=== PATIENT | female | born 1965 | race Caucasian/White ===

== ENCOUNTER 2024-04-15 10:05 | Outpatient (CLI) | payer BC, SELFPAY ==
--- OUTSIDE RECORDS SUMMARY | 2024-04-15 10:09 | XMS_ITS | Clinical Summary ---
Author Organization [employer] [facility] Address [place], [place] [address] Care Team Providers Care Welding Machine Operator Electroslag Name Role Phone Kajal Rice MD Primary Care Provider Unavai lable Allergies Active Allergy Reactions Criticality Noted Date Comments Naproxen Hives 04/09/2018 Medications Medication Sig Dispensed Refills Start Date End Date Status MULTIVITAMIN CAP daily 0 Active ADVIL ORAL None Entered 0 Active levothyroxine (SYNTHROID) 175 mcg tablet Take 175 mcg by mouth once daily. 2 01/13/2018 Active Vit C-Vit N-Vmbctq-Mjs-OM-3 (OCUVITE 150 MG-30 UNIT-5 MG-150 MG CAPSULE) 660-83-2-150 bp-wpdr-up-mg capsule Take by mouth. 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 07/19/05 Social History Tobacco Use Types Packs/Day Years Used Date Smoking Tobacco: Never Smokeless Tobacco: Never Tobacco Cessation:Counseling Given: Yes Alcohol Use Standard Drinks/Week Comments Yes 2 (1 standard drink = 0.6 oz pur e alcohol) Sex and Gender Information Value Date Recorded Sex Assigned at Not on file Gender Identity Not on file Sexual Orientation Not on file Obstetrics History Last Filed Vital Signs Vital Sign Reading Time Taken Comments Blood Pressure 125/79 04/09/2018 9:58 AM CDT Pulse 62 04/09/2018 9:58 AM CDT Temperature 36.8 ??C (98.2 ??F) 04/09/2018 9 :58 AM CDT Respiratory Rate 16 04/09/2018 9:58 AM CDT Oxygen Saturation 99% 04/09/2018 9:5 8 AM CDT Inhaled Oxygen Concentration - - Weight 81.2 kg (179 lb) 04/09/2018 9:58 AM CDT Pt weighed with shoes on. 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 Body Mass Index - - Plan of Treatment Health Maintenance Due Date Last Done Comments Tdap 1976 Depression screening for age 12+ 1977 HIV for age 15-65 1980 BMI (ht and wt on same day) for age 18+ 1983 Hepatitis C screening for ag e 18-79 1983 Tetanus booster 1985 Colonoscopy through age 75 2010 Lipids for age 45-75 2010 Mammogram for age 45-75 2010 Zoster (shingles) series for age 50+ (1 of 2) 2015 Pap test for age 21-65 11/28/2020 8, 11/28/2017 COVID-19 vaccine series (2022-24 season) 2024 Influenza for age 50-64 03/31/2024 Pneumococcal series for age 6-64 Aged Out No longer eligible b ased on patient's age to complete this topic Procedures Procedure Name Priority Date/Time Associated Diagnosis Comments INSTRUMENTATION DESIGNER THIN PREP PAP SCREEN IMAGED Routine 11/28/2017 8:30 AM CDT from Last 3 Months or Most Recently Relevant to Health Maintenance Results * INSTRUMENTATION DESIGNER THIN PREP PAP SCREEN IMAGED (11/28/2017 8:30 AM CDT) Case Report Gynecologic Cytology Report ? Case: [id number] ? Authorizing Provider: ??Kajal Rice MD ? Collected: ? 11/28/2017 0830 ? First Screen: ?Minoo Valenzuela ?Received: ?11/29/2017 1819 ? Specimen: ?INSTRUMENTATION DESIGNER ThinPrep Vial Screening, Cervical/Vaginal ? 12/05/2017 8:32 PM CDT [facility] INTERPRETATION/ RESULT NEGATIVE FOR INTRAEPITHELIAL LESION OR MALIGNANCY (NIL) (none) 12/05/2017 8:32 PM CDT [facility] IMEN ADEQUACY Satisfactory for evaluation No endocervical component seen 12/05/2017 8:32 PM CDT [facility] HPV REQUEST HPV and PAP 12/05/2017 8:32 PM CDT [facility] Date of LMP 10/29/2017 12/05/2017 8:32 PM CDT [facility] Last Pap Date 10/17/2012 12/05/2017 8:32 PM CDT [facility] Last Pap Result NIL 8 8:32 PM CDT [facility] Automated Review Successful 12/05/2017 8:32 PM T [facility] Comment:Specimen processed s uccessfully by automated hunting and fishing guide device, ThinPrep Imaging System, [employer] ANCILLARY TESTING INSTRUMENTATION DESIGNER HPV Ordered, Please see separate report 12/05/2017 8:32 PM T [facility] Note The pap test is a screening technique, not a diagnostic procedure. ??It is used primarily to screen for squamous cancers and precursor lesions. ??Published studies have shown that it is subject to both false negative and false positive results. ??The pap test should not be used as the sole means to diagnose or exclude pre-malignant and malignant lesions. Interpreted at [facility] ([facility], [facility], [facility], [facility], [facility], [facility], [facility]) 12/05/2017 8:32 PM CDT [facility] Other (Cervical/Vagina l) 11/28/2017 8:30 AM CDT 11/29/2017 6:19 PM CDT Kajal Rice MD PATHOLOGY/CYTOLOGY [facility] [address] [place] [address], from Last 3 Months or Most Recently Relevant to Health Maintenance Advance Directives * Full Code (Latest Code Status on File) Date Activated Date Inactivated Comments 07/19/2005 9:37 AM 07/20/2005 1:08 PM Care Teams Welding Machine Operator Electroslag Relationship Specialty Start Date End Date Kajal Rice MD PCP - General Family Practice 04/09/18
--- NOTE | 2024-04-15 10:15 | CRLHL7_ITS ---
For Patients: As a result of the Century Cures Act, medical imaging exams and procedure reports are released immediately into your electronic medical record. You may view this report before your referring provider. If you have questions, please contact your health care provider. CLINICAL INDICATION: Elbow pain. COMPARISON IMAGING STUDIES: Left elbow radiograph 04/04/2024 TECHNICAL: Noncontrast MRI scan of the left elbow. FINDINGS: MYOTENDINOUS STRUCTURES: Triceps: Normal. Biceps: Insertional tendinosis and/or chronic partial tear of the distal biceps tendon with minimal bursal fluid deep to the tendon at its attachment. Brachialis: No strain or tear. Supinator: No strain or tear. Common Extensor Tendon and Forearm Extensors: Tendinosis and partial tear of the common extensor tendon at its lateral epicondylar attachment. Common Flexor Tendon and Forearm Flexors: Mild insertional tendinosis/tendinitis of the common flexor tendon at its medial epicondyle attachment. ELBOW JOINT: Moderate size elbow joint effusion with mild synovitis. BONES: No fracture, marrow edema or marrow replacement process. LIGAMENTS: Ulnar Collateral: Woqi-gu-dnpxujav sprain of the proximal aspect of the ulnar collateral ligament. Radial Collateral: The proximal aspect of the radial collateral ligament is ruptured. Lateral Ulnar Collateral: Thickened but intact lateral ulnar collateral ligament. Annular ligament: Intact. NERVES: Ulnar: There is edema within the subcutaneous tissues at the posterior medial elbow superficial to the cubital tunnel. The arcuate ligament of Xie is indistinct, possibly the sequelae of previous surgery. Fluid within the posteromedial elbow joint may slightly displace the ulnar nerve which is slightly swollen and has minimal increased signal on fat-suppressed images. No other mass within the cubital tunnel. Median: Normal. Radial: Normal. OTHER FINDINGS: There is no soft tissue mass or fluid collection. IMPRESSION: 1. Moderate sized elbow joint effusion. 2. Mild medial epicondylitis. 3. Lateral epicondylitis consisting of tendinosis and partial tear of the common extensor tendon, rupture of the radial collateral ligament and thickening of the lateral ulnar collateral ligament. 4. Insertional tendinosis and/or chronic partial tear of the distal biceps tendon with minimal bursitis. 5. Subcutaneous edema within the posteromedial elbow superficial to the cubital tunnel with indistinctness of the arcuate ligament of Xie, possibly the sequelae of previous surgery or other trauma. The ulnar nerve is slightly swollen and minimally increased in signal. Correlate for possible ulnar neuritis. Dictated by Billy Collado MD @ 04/16/2024 9:14:28 AM (Electronically Signed)
== END 2024-04-15 10:06 | disposition home or self-care (01) ==
LOC: MRI 10:07
PROVIDERS: PCP Family Medicine; Visit Provider Physician Assistant Medical
DX: M25.522 Pain in left elbow (principal); M12.4 Intermittent hydrarthrosis; S46.212A Strain of muscle, fascia and tendon of other parts of biceps, left arm, initial encounter; M77.02 Medial epicondylitis, left elbow; M77.12 Lateral epicondylitis, left elbow
CPT/HCPCS: 73221

== ENCOUNTER 2024-05-16 08:32 | Outpatient (CLI) | payer BC, SELFPAY ==
--- OUTSIDE RECORDS SUMMARY | 2024-05-19 04:23 | XMS_ITS | Clinical Summary ---
Author Organization [employer] [facility] Address [place], [place] [address] Care Team Providers Care Mechanical Development Engineer Name Role Phone Kajal Rice MD Primary Care Provider Unavai lable Allergies Active Allergy Reactions Criticality Noted Date Comments Naproxen Hives 04/09/2018 Medications Medication Sig Dispensed Refills Start Date End Date Status MULTIVITAMIN CAP daily 0 Active ADVIL ORAL None Entered 0 Active levothyroxine (SYNTHROID) 175 mcg tablet Take 175 mcg by mouth once daily. 2 01/13/2018 Active Vit C-Vit R-Dcgjmu-Zci-OM-3 (OCUVITE 150 MG-30 UNIT-5 MG-150 MG CAPSULE) 586-42-5-150 ex-wjck-uy-mg capsule Take by mouth. 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 Body Mass Index - - Plan of [...] 21-65 11/28/2020 8, 11/28/2017 COVID-19 vaccine series (2023-25 season) 2024 Influenza for age 50-64 03/31/2024 Pneumococcal series for age 6-64 Aged Out No longer eligible b ased on patient's age to complete this topic Procedures Procedure Name Priority Date/Time Associated Diagnosis Comments INDUSTRIAL SERVICE TECHNICIAN THIN PREP PAP SCREEN IMAGED Routine 11/28/2017 8:30 AM CDT from Last 3 Months or Most Recently Relevant to Health Maintenance Results * INDUSTRIAL SERVICE TECHNICIAN THIN PREP PAP SCREEN IMAGED (11/28/2017 8:30 AM CDT) Case Report Gynecologic Cytology Report ? Case: [id number] ? Authorizing Provider: ??Kajal Rice MD ? Collected: ? 11/28/2017 0830 ? First Screen: ?Minoo Valenzuela ?Received: ?11/29/2017 1819 ? Specimen: ?INDUSTRIAL SERVICE TECHNICIAN ThinPrep Vial Screening, Cervical/Vaginal ? 12/05/2017 8:[address] [facility] INTERPRETATION/ RESULT NEGATIVE FOR INTRAEPITHELIAL LESION OR MALIGNANCY (NIL) (none) 12/05/2017 8:[address] [facility] IMEN ADEQUACY Satisfactory for evaluation No endocervical component seen 12/05/2017 8:[address] [facility] HPV REQUEST HPV and PAP 12/05/2017 8:32 PM CDT [facility] Date of LMP 10/29/2017 12/05/2017 8:32 PM CDT [facility] Last Pap Date 10/17/2012 12/05/2017 8:32 PM CDT [facility] Last Pap Result NIL 8 8:[address] [facility] Automated Review Successful 12/05/2017 8:32 PM T [facility] Comment:Specimen processed s uccessfully by automated oyster shipper device, ThinPrep Imaging System, [employer] ANCILLARY TESTING INDUSTRIAL SERVICE TECHNICIAN HPV Ordered, Please see separate report 12/05/2017 8:[address] [facility] Note The pap test is a screening technique, not a diagnostic procedure. ??It is used primarily to screen for squamous cancers and precursor lesions. ??Published studies have shown that it is subject to both false negative and false positive results. ??The pap test should not be used as the sole means to diagnose or exclude pre-malignant and malignant lesions. Interpreted at [facility] (Central Lab, [facility], [facility], [facility], [facility], [facility], [facility]) 12/05/2017 8:32 PM CDT [facility] Other (Cervical/Vagina l) 11/28/2017 8:30 AM CDT 11/29/2017 6:19 PM CDT Kajal Rice MD PATHOLOGY/CYTOLOGY [facility] [employer] LABORATORY-CENTRAL LABORATORY [address] [place] [address], from Last 3 Months or Most Recently Relevant to Health Maintenance Advance Directives * Full Code (Latest Code Status on File) Date Activated Date Inactivated Comments 07/19/2005 9:37 AM 07/20/2005 1:08 PM Care Teams Mechanical Development Engineer Relationship Specialty Start Date End Date Kajal Rice MD PCP - General Family Practice 04/09/18
== END 2024-05-16 08:33 | disposition home or self-care (01) ==
LOC: NFLDREF 05-19 04:22
PROVIDERS: PCP Family Medicine; Referring Provider Family Medicine; Visit Provider Physician Assistant Medical
DX: E78.5 Hyperlipidemia, unspecified (principal); E03.9 Hypothyroidism, unspecified; Z11.59 Encounter for screening for other viral diseases; Z11.4 Encounter for screening for human immunodeficiency virus [HIV]
CPT/HCPCS: 80053; 80061; 84443; 86703; 86803

== ENCOUNTER 2024-06-04 17:27 | Outpatient (CLI) | payer BC, SELFPAY ==
--- OUTSIDE RECORDS SUMMARY | 2024-06-04 17:30 | XMS_ITS | Clinical Summary ---
Author Organization [employer] [facility] Address [place], [place] [address] Care Team Providers Care Managing Partner Name Role Phone Kajal Rice MD Primary Care Provider Unavai lable Allergies Active Allergy Reactions Criticality Noted Date Comments Naproxen Hives 04/09/2018 Medications Medication Sig Dispensed Refills Start Date End Date Status MULTIVITAMIN CAP daily 0 Active ADVIL ORAL None Entered 0 Active levothyroxine (SYNTHROID) 175 mcg tablet Take 175 mcg by mouth once daily. 2 01/13/2018 Active Vit C-Vit P-Xilrqe-Onf-OM-3 (OCUVITE 150 MG-30 UNIT-5 MG-150 MG CAPSULE) 359-30-3-150 td-cknp-da-mg capsule Take by mouth. 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 Case: [id number] ? Authorizing Provider: ??Kajal Rice MD ? Collected: ? 11/28/2017 0830 ? First Screen: ?Minoo Valenzuela ?Received: ?11/29/2017 1819 ? Specimen: ?ETHNIC STUDIES PROFESSOR ThinPrep Vial Screening, Cervical/Vaginal ? 12/05/2017 8:32 PM CDT [facility] INTERPRETATION/ RESULT NEGATIVE FOR INTRAEPITHELIAL LESION OR MALIGNANCY (NIL) (none) 12/05/2017 8:32 PM CDT [facility] IMEN ADEQUACY Satisfactory for evaluation No endocervical component seen 12/05/2017 8:32 PM CDT [facility] HPV REQUEST HPV and PAP 12/05/2017 8:32 PM CDT [facility] Date of LMP 10/29/2017 12/05/2017 8:32 PM CDT [facility] Last Pap Date 10/17/2012 12/05/2017 8:32 PM CDT [facility] Last Pap Result NIL 8 8:32 PM CDT [facility] Automated Review Successful 12/05/2017 8:32 PM T [facility] Comment:Specimen processed s uccessfully by automated air commodore device, ThinPrep Imaging System, [employer] ANCILLARY TESTING ETHNIC STUDIES PROFESSOR HPV Ordered, Please see separate report 12/05/2017 8:32 PM T [facility] Note The pap test is a screening technique, not a diagnostic procedure. ??It is used primarily to screen for squamous cancers and precursor lesions. ??Published studies have shown that it is subject to both false negative and false positive results. ??The pap test should not be used as the sole means to diagnose or exclude pre-malignant and malignant lesions. Interpreted at [facility] ([facility] Lab, [facility], [facility], [facility], [facility], [facility], [facility]) 12/05/2017 8:32 PM CDT [facility] Other (Cervical/Vagina l) 11/28/2017 8:30 AM CDT 11/29/2017 6:19 PM CDT Kajal Rice MD PATHOLOGY/CYTOLOGY [facility]ORAT[facility]-CENTRAL LABORATORY [address] [place] [address], from Last 3 Months or Most Recently Relevant to Health Maintenance Advance Directives * Full Code (Latest Code Status on File) Date Activated Date Inactivated Comments 07/19/2005 9:37 AM 07/20/2005 1:08 PM Care Teams Managing Partner Relationship Specialty Start Date End Date Kajal Rice MD PCP - General Family Practice 04/09/18
--- NOTE | 2024-06-04 17:40 | CRLHL7_ITS ---
For Patients: As a result of the Century Cures Act, medical imaging exams and procedure reports are released immediately into your electronic medical record. You may view this report before your referring provider. If you have questions, please contact your health care provider. BILATERAL SCREENING MAMMOGRAM WITH COMPUTER-AIDED DETECTION AND TOMOSYNTHESIS TECHNIQUE: CC and MLO views were obtained. These mammographic images have been obtained using full-field digital technique. These mammographic images were interpreted with the benefit of computer-aided detection. Breast tomosynthesis was used in this interpretation. COMPARISON FILM: 05/26/21, 05/07/19, 07/18/17. FINDINGS: The breasts are heterogeneously dense, which may obscure small masses. IMPRESSION: There is no radiographic evidence for malignancy. ASSESSMENT: BI-RADS Category 1: Negative RECOMMENDATION: Routine screening mammogram in 1 year. A lay language report of this examination will be provided to the patient. JACK PEREZ M.D. Diagnostic Radiologist [email or web address] Transcribed: 1:[address]/Dictated by: Jack Perez MD @ 06/10/2024 11:34:00 AM (Electronically Signed)
== END 2024-06-04 17:28 | disposition home or self-care (01) ==
LOC: MAMMO 17:27
PROVIDERS: PCP Family Medicine; Visit Provider Physician Assistant Medical
DX: Z12.31 Encounter for screening mammogram for malignant neoplasm of breast (principal); R92.333 Mammographic heterogeneous density, bilateral breasts
CPT/HCPCS: 77063; 77067

== ENCOUNTER 2024-09-30 08:45 | Outpatient (CLI) | payer BC, SELFPAY | END 2024-09-30 08:46 | disposition home or self-care (01) | PROVIDERS: PCP Family Medicine; Visit Provider Family Medicine | DX: R94.31 Abnormal electrocardiogram [ECG] [EKG] (principal) | CPT/HCPCS: 93306 ==

== ENCOUNTER 2024-10-03 06:42 | Day surgery (SDC) | payer BC, SELFPAY ==
[2024-10-03] VITALS (28 sets, daily range): BP systolic 104–158; BP diastolic 58–108; PULSE 38–81; RESP 12–18; TEMP 35.7–37.2; O2SAT 85–100; BMI 25.0
--- OUTSIDE RECORDS SUMMARY | 2024-10-03 06:45 | XMS_ITS | Clinical Summary ---
Author Organization [facility] Address [address] [place] [id number] Care Team Providers Care Municipal Clerk Name Role Phone Kajal Rice MD Primary Care Provider Dayanavai lable Allergies Active Allergy Reactions Criticality Noted Date Comments Naproxen Hives 04/09/2018 Medications MULTIVITAMIN CAP daily 0 Active ADVIL ORAL None Entered 0 Active levothyroxine (SYNTHROID) 175 mcg tablet Take 175 mcg by mouth once daily. 2 01/13/2018 Active Vit C-Vit R-Iamson-Com-OM -3 (OCUVITE 150 MG-30 UNIT-5 MG-150 MG CAPSULE) 718-65-2-150 si-jgjw-xf-mg capsule Take by mouth. 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 07/19/05 Encounters Date Type Department Care Team Description 09/30/2024 9:00 AM SURGERY TECH Ancillary Procedure [facility] [address] [place] [address] Arrived from Last 3 Months Social History Tobacco Use Types Packs/Day Years Used Date Smoking Tobacco: Never Smokeless Tobacco: Never Tobacco Cessation:Counseling Given: Yes Alcohol Use Standard Drinks/Week Comments Yes 2 (1 standard drink = 0.6 oz pur e alcohol) Comments No Sex and Gender Information Value Date Recorded Sex Assigned at Not on file Legal Sex Female 7:13 AM SURGERY TECH Gender Identity Not on file Sexual Orientation Not on file Obstetrics History Last Filed Vital Signs Vital Sign Reading Time Taken Comments Blood Pressure 125/79 04/09/2018 9:58 AM CDT Pulse 62 04/09/2018 9:58 AM CDT Temperature 36.8 C (98.2 F) 04/09/2018 9:58 AM CDT Respiratory Rate 16 04/09/2018 9:58 AM CDT Oxygen Saturation 99% 04/09/2018 9:5 8 AM CDT Inhaled Oxygen Concentration - - Weight 81.2 kg (179 lb) 04/09/2018 9:58 AM CDT Pt weighed with shoes on. Height 173 cm (5' 8.11) 07/19/2005 7:0 0 AM SURGERY TECH Body Mass Index - - Plan of Treatment Health Maintenance Due Date Last Done Comments Tdap 1976 Depression screening for age 12+ 1977 HIV for age 15-65 1980 BMI (ht and wt on same day) for age 18+ 1983 Hepatitis C screening for age 18-79 1983 Tetanus booster 1985 Colonoscopy through age 75 2010 Lipids for age 45-75 2010 Mammogram for age 45-75 2010 Pneumococcal series for age 50+ (1 of 1 - PCV) 2015 Zoster (shingles) series for age 50+ (1 of 2) 2015 Pap test for age 21-65 11/28/2020 11/28/2017, 2017 COVID-19 vaccine series (2023-25 season) 2024 Influenza for age 50-64 03/31/2024 Procedures Procedure Name Priority Date/Time Associated Diagnosis Comments ECHO TTE COMPLETE WO CONTRAST Routine 09/30/2024 9:14 AM SURGERY TECH Abnormal EKG COMMISSIONS SPECIALIST THIN PREP PAP SCREEN IMAGED Routine 11/28/2017 8:30 AM CDT from Last 3 Months or Most Recently Relevant to Health Maintenance Results * ECHO TTE COMPLETE WO CONTRAST (09/30/2024 9:14 AM SURGERY TECH) AORTIC VALVE MEAN PG 5 mmHg EJECTION FRACTION 68 % LVEDD 4.0 cm EJECTION FRACTION 55 - 60% Anatomical Region Laterality Modality Ultrasound 09/30/2024 9:02 AM SURGERY TECH Narrative 09/30/2024 9:18 AM SURGERY TECH ECHOCARDIOGRAM KATHERYN JOHNSON : 1965 59 years Study Date: 09/30/2024 9:02:02 AM Gender: F BP: 118/72 mmHg Height: 173.00 cm BSA: 1.95 m Weight: 81.00 kg Tech: NWA Referring MD: LEI VASQUEZ Site: [facility] Reading Location: Mobile-OP Patient Location: Outpatient. Procedure: 2D, Color Doppler and Spectral Doppler. Indication for study: Abn EKG Cardiac Rhythm: Regular.Study quality: Excellent. Final Impressions: 1. Normal left ventricular size, normal wall thickness, normal global systolic function, calculated EF of 68 %. 2. Right ventricular cavity size is normal, global systolic RV function is normal. 3. No significant valve disease detected. Chamber Sizes and Function Normal left ventricular size, normal wall thickness, normal global systolic function, calculated EF of 68 %. No resting regional wall motion abnormality visualized. Left atrial size is normal. Left atrial pressure is normal. Right ventricular cavity size is normal, global systolic RV function is normal. RV wall thickness is normal. The right atrium is normal. Right atrial volume index is 12 ml/m . Right atrial area is 11 cm . The pulmonary artery is of normal size and origin. The sinus of Valsalva is normal sized. The ascending aorta is normal sized. Valves, RV Pressures and Diastolic Function The aortic valve is normal in structure and trileaflet, no stenosis and no regurgitation. The mitral valve is normal in structure, no mitral regurgitation. Normal diastolic function for age. The tricuspid valve is normal in structure and regurgitation is not evident tricuspid regurgitation. The pulmonic valve is normal. No pulmonary regurgitation. Masses, Effusion, Shunts There is no pericardial effusion. The inferior vena cava is normal sized, respiratory size variation greater than 50%. No left to right shunting was detected by limited color flow Doppler interrogation of the interatrial septum. MEASUREMENTS AND CALCULATIONS 2-D Measurements and LV Function: LVID (d) 4.0 cm Planimetered EF 68 % LVID (s) 2.5 cm LV FS% (2D) 38 % IVS (d) 1.0 cm LVOT diameter 2.0 cm LVPW (d) 1.1 cm HR 58 bpm Ao Sinus 3.5 cm LA Vol index 26 ml/m2 Ao Sinus ULN 3.8 cm * RA Vol index 12 ml/m2 Asc Ao 3.4 cm RA area 11 cm Asc Ao ULN 3.9 cm * RV Basal Diam 2.9 cm LA 2.8 cm RV Mid Diam 1.8 cm * Input BSA outside of range, reported values correspond to BSA = 1.9 Diastology: Mitral Tissue Doppler Pulmonary veins E Peak 0.9 m/s e', Septum 0.10 m/s Pulm s 61.7 cm/s A Peak 1.0 m/s e', Lateral 0.09 m/s Pulm d 51.6 cm/s E/A 0.9 E/e' Average 10.15 Pulm s/d ratio 1.20 DT 256 msec Aortic Valve: Vmax 1.5 m/s MASHA (V) 2.49 cm VTI 0.37 m MASHA (I) 2.41 cm LVOT V max 1.2 m/s Max PG 9 mmHg LVOT VTI 0.28 m Mean PG 5 mmHg SV 90 ml Dim Index 0.75 SV index 46 ml/m CO 5.2 l/min CI 2.7 l/min/m Mitral Valve: MVA 3.0 cm MV P 1/2 74 msec Tricuspid Valve and estimated PA pressures: TAPSE 2.6 cm Pulmonic Valve: PV Vmax 0.9 m/s . This study was interpreted by an [facility] accredited facility. CC: [facility] ([facility]) [facility]. Final Procedure Note Shahbaz Silverman MD - 09/30/2024 ECHOCARDIOGRAM KATHERYN JOHNSON : 1965 59 years Study Date: 09/30/2024 9:02:02 AM Gender: F BP: 118/72 mmHg Height: 173.00 cm BSA: 1.95 m Weight: 81.00 kg Tech: NWA Referring MD: LEI VASQUEZ Site: [facility] Reading Location: Mobile-OP Patient Location: Outpatient. Procedure: 2D, Color Doppler and Spectral Doppler. Indication for study: Abn EKG Cardiac Rhythm: Regular.Study quality: Excellent. Final Impressions: 1. Normal left ventricular size, normal wall thickness, normal globalsystolic function, calculated EF of 68 %. 2. Right ventricular cavity size is normal, global systolic RV functionis normal. 3. No significant valve disease detected. Chamber Sizes and Function Normal left ventricular size, normal wall thickness, normal globalsystolic function, calculated EF of 68 %. No resting regional wall motionabnormality visualized. Left atrial size is normal. Left atrial pressureis normal. Right ventricular cavity size is normal, global systolic RVfunction is normal. RV wall thickness is normal. The right atrium isnormal. Right atrial volume index is 12 ml/m . Right atrial area is 11cm . The pulmonary artery is of normal size and origin. The sinus ofValsalva is normal sized. The ascending aorta is normal sized. Valves, RV Pressures and Diastolic Function The aortic valve is normal in structure and trileaflet, no stenosis and noregurgitation. The mitral valve is normal in structure, no mitralregurgitation. Normal diastolic function for age. The tricuspid valve isnormal in structure and regurgitation is not evident tricuspidregurgitation. The pulmonic valve is normal. No pulmonary regurgitation. Masses, Effusion, Shunts There is no pericardial effusion. The inferior vena cava is normal sized,respiratory size variation greater than 50%. No left to right shunting wasdetected by limited color flow Doppler interrogation of the interatrialseptum. MEASUREMENTS AND CALCULATIONS 2-D Measurements and LV Function: LVID (d) 4.0 cm Planimetered EF 68% LVID (s) 2.5 cm LV FS% (2D) 38% IVS (d) 1.0 cm LVOT diameter2.0 cm LVPW (d) 1.1 cm HR 58bpm Ao Sinus 3.5 cm LA Vol index 26ml/m2 Ao Sinus ULN 3.8 cm * RA Vol index 12ml/m2 Asc Ao 3.4 cm RA area 11cm Asc Ao ULN 3.9 cm * RV Basal Diam2.9 cm LA 2.8 cm RV Mid Diam1.8 cm * Input BSA outside of range, reported values correspond to BSA = 1.9 Diastology: Mitral Tissue Doppler Pulmonary veins E Peak 0.9 m/s e', Septum 0.10 m/s Pulm s 61.7 cm/s A Peak 1.0 m/s e', Lateral 0.09 m/s Pulm d 51.6 cm/s E/A 0.9 E/e' Average 10.15 Pulm s/d ratio 1.20 DT 256 msec Aortic Valve: Vmax 1.5 m/s MASHA (V) 2.49 cm VTI 0.37 m MASHA (I) 2.41 cm LVOT V max 1.2 m/s Max PG 9 mmHg LVOT VTI 0.28 m Mean PG 5 mmHg SV 90 ml Dim Index 0.75 SV index 46 ml/m CO 5.2 l/min CI 2.7 l/min/m Mitral Valve: MVA 3.0 cm MV P 1/2 74 msec Tricuspid Valve and estimated PA pressures: TAPSE 2.6 cm Pulmonic Valve: PV Vmax 0.9 m/s . This study was interpreted by an [facility] accredited facility. CC: [facility]) [facility]. Final us Lei Vasquez MD ECHO ORD Final Resul t * COMMISSIONS SPECIALIST THIN PREP PAP SCREEN IMAGED (11/28/2017 8:30 AM CDT) Case Report Gynecologic Cytology Report Case: [id number] Authorizing Provider: Kajal Rice MD Collected: 11/28/2017 08 First Screen: Minoo Valenzuela Received: 11/29/2017 1819 Specimen: COMMISSIONS SPECIALIST ThinPrep Vial Screening, Cervical/Vaginal 12/05/2017 8:32 PM CDT [facility] INTERPRETATION/ RESULT NEGATIVE FOR INTRAEPITHELIAL LESION OR MALIGNANCY (NIL) (none) 12/05/2017 8:32 PM CDT [facility] IMEN ADEQUACY Satisfactory for evaluation No endocervical component seen 12/05/2017 8:32 PM CDT [email or web address] HPV REQUEST HPV and PAP 12/05/2017 8:32 PM CDT [facility] Date of LMP 10/29/2017 12/05/2017 8:32 PM CDT [facility] Last Pap Date 10/17/2012 12/05/2017 8:32 PM CDT [facility] Last Pap Result NIL 8 8:32 PM CDT [facility] Automated Review Successful 12/05/2017 8:32 PM CDT [facility] Comment:Specimen processed s uccessfully by automated dean of admissions device, ThinPrep Imaging System, [employer] ANCILLARY TESTING COMMISSIONS SPECIALIST HPV Ordered, Please see separate report 12/05/2017 8:32 PM CDT [facility] Note The pap test is a screening technique, not a diagnostic procedure. It is used primarily to screen for squamous cancers and precursor lesions. Published studies have shown that it is subject to both false negative and false positive results. The pap test should not be used as the sole means to diagnose or exclude pre-malignant and malignant lesions. Interpreted at [facility] ([facility], [facility], [facility], [facility], [facility], [facility], [facility]) 12/05/2017 8:32 PM T [facility] Other (Cervical/Vagina l) 11/28/2017 8:30 AM CDT 11/29/2017 6:19 PM CDT us Kajal Rice MD PATHOLOGY/CYTOLOGY Final Resu lt [facility] [address] [place] [address], [place] from Last 3 Months or Most Recently Relevant to Health Maintenance Advance Directives * Full Code (Latest Code Status on File) Date Activated Date Inactivated Comments 07/19/2005 9:37 AM 07/20/2005 1:08 PM Care Teams Municipal Clerk Relationship Specialty Start Date End Date Kajal Rice MD PCP - General Family Practice 04/09/18
[2024-10-03] MEDS: LACTATED RINGERS 1000 ML 1,000 ML 100 ML IV (07:05)
[2024-10-03] MEDS: SODIUM CHLORIDE 0.9 % (FLUSH) 10 ML SYRINGE IVF (07:05)
[2024-10-03] MEDS: ACETAMINOPHEN 500 MG TABLET 1000 MG PO ×3 (07:27→19:29)
[2024-10-03] MEDS: CELECOXIB 200 MG CAPSULE PO (07:28)
[2024-10-03] MEDS: OXYCODONE (CR) 10 MG TAB.ER.12H PO (07:28)
--- NOTE | 2024-10-03 07:42 | SUR.PREOP ---
TIME?OUT:?0745 PT/RN/MDA?VERIFICATION?OF?SURGICAL?SITE,?PROCEDURE,?AND?CONSENT OBTAINED?PRIOR?TO?INVASIVE?PROCEDURE.
[2024-10-03] MEDS: fentaNYL 100 MCG/2 ML inj IVP (07:46)
[2024-10-03] MEDS: MIDAZOLAM HCL 1 MG/ML inj IVP (07:46)
--- NOTE | 2024-10-03 08:00 | CRLHL7_ITS ---
For Patients: As a result of the Cures Act, medical imaging exams and procedure reports are released immediately into your electronic medical record. You may view this report before your referring provider. If you have questions, please contact your health care provider. Indication: Hip replacement surgery Technique: AP hip fluoroscopic image. Fluoroscopy time 73.2 seconds. Findings/Impression: Hardware from a left total hip arthroplasty is in satisfactory position. Dictated by Jack Love MD @ 10/03/2024 1:05:42 PM (Electronically Signed)
[2024-10-03] MEDS: CEFAZOLIN 2 GM INJ IVP (08:14)
[2024-10-03] MEDS: TRANEXAMIC ACID 100 MG/ML INJ 1000 MG IV (08:14)
--- NOTE | 2024-10-03 08:57 | P.NB_ITS ---
Nerve Block Nerve Block Time Seen by Provider: 07:48 Date Seen: 10/03/24 Type of block requested by surgeon for post-operative analgesia: DALILA/LFCN Side: left Time out performed: Yes Verification of patient name: Yes Verification of date of : Yes Site marking: site marked Name of person performing procedure: Joaquin Continuous monitoring Was continuous monitoring of O2 sat, B/P, radiographer cardiac catheterization, recorded every 15 minutes?: Yes Procedure Checklist: sterile prep, needles and gloves Ultrasound guided. Images saved: Yes Medications given in 5ml increments after negative aspiration: Ropivicaine %: 0.5 mL: 30 Needle gauge: 20 Precedex (mcg): 25 Patient tolerated procedure well: Yes Additional comments: Needle noted below psoas tendon needle noted adjacent to LFCN Block Charges Block Charge (with Pro Fee): Other Periph Nerve Block Use of Ultrasound Machine for Block: Yes- US Guidance/pain block
--- NOTE | 2024-10-03 08:58 | P.ANES_ITS ---
Anesthesia Charges Start Date/Time Anesthesia Start Date: 10/03/24 Anesthesia Start Time: 07:54 Stop Date/Time Anesthesia Stop Date: 10/03/24 Anesthesia Stop Time: 10:22 Coding CPT Codes CPT Codes: ANESTH HIP ARTHROPLASTY - 85431 ([id number]) P2 - PATIENT W/MILD SYST DISEASE, QK - PIE DOUGH ROLLER 2-4 CNCRNT ANES PROC, QX - EDUCATIONAL AIDE SVC W/ MD MED DIRECTION
--- NOTE | 2024-10-03 08:58 | W.ANESCHARGE ---
Anesthesia Charges Start Date/Time Anesthesia Start Date: 10/03/24 Anesthesia Start Time: 07:54 Stop Date/Time Anesthesia Stop Date: 10/03/24 Anesthesia Stop Time: 10:22 Coding CPT Codes CPT Codes: ANESTH HIP ARTHROPLASTY - 98195 ([id number]) P2 - PATIENT W/MILD SYST DISEASE, QK - DIETARY DIRECTOR 2-4 CNCRNT ANES PROC, QX - SENIOR PHYSICIAN SVC W/ MD MED DIRECTION
--- NOTE | 2024-10-03 09:38 | CRLHL7_ITS ---
For Patients: As a result of the Cures Act, medical imaging exams and procedure reports are released immediately into your electronic medical record. You may view this report before your referring provider. If you have questions, please contact your health care provider. Indication: POST OP LEFT HIP Technique: AP hip centered pelvis and lateral view left hip Findings/Impression: Hardware from a left total hip arthroplasty is in satisfactory position. Bone alignment is normal. No sign of acute fracture. Postop changes are within normal limits. Dictated by Jack Love MD @ 10/03/2024 1:02:38 PM (Electronically Signed)
--- NOTE | 2024-10-03 09:39 | PM.ORPRC ---
Procedure Note Date of procedure: 10/03/24 Procedure: PREOPERATIVE DIAGNOSIS: Left hip osteoarthritis POSTOPERATIVE DIAGNOSIS: Left hip osteoarthritis NAME OF OPERATION: Left total hip arthroplasty SURGEON: Mikey Echevarria MD MANAGER CODING: Nadia Dumont PA-C, LASHELL Can IMPLANTS: 1. [employer] [place] # 52 sector ingrowth cup 2. 36 x 52 +4 neutral polyethylene 3. Actis # 5 standard collared ingrowth stem 4. 36 + 8.5 ceramic femoral head ANESTHESIA: General ESTIMATED BLOOD LOSS: 450 cc COMPLICATIONS: None SPECIMENS: None DRAINS: None PREOPERATIVE ANTIBIOTICS: Ancef 2 grams INDICATIONS: The patient is a 59-year-old with a longstanding history of severe, unrelenting left hip pain secondary to end-stage left hip osteoarthritis. Despite appropriate nonoperative management, including activity modification, use of an assist device, anti-inflammatories, [id number]-[id number]-[id number] pain medication, physical therapy and injections, they continue to have pain and disability. Operative intervention was offered. The risks, benefits and expected outcomes were discussed in detail. These included but were not limited to: Infection, bleeding, injury to blood vessel or nerve, venous thromboembolism. All questions were answered to their satisfaction. Use of an assistant restaurant general manager was necessary throughout the case for patient positioning and safety, soft tissue retraction and closure. PROCEDURE: The patient was placed supine on the Shiner table. General anesthesia was administered. The assistant restaurant general manager made sure the patient was properly positioned. The left hip was prepped and draped in the usual sterile fashion. The image intensifier was brought in for a perfect AP pelvis and a perfect double tear drop AP view of each hip which were used for intraoperative templating with our fluoroscopic guide. An oblique incision was made 3 cm distal and 3 cm lateral to the anterior superior iliac spine. The assistant restaurant general manager retracted the soft tissues to protect them. Subcutaneous dissection was taken with electrocautery to the superficial fascia. The fascia was divided in line with the incision. Blunt dissection was carried medially to the tensor fascia brianne and sartorius interval. Deep dissection was carried with electrocautery. The circumflex vessels were cauterized and divided. The capsule was exposed and then divided in a T-fashion, tagged with #1 Ethibond sutures. Retractors were placed in the joint, held by the assistant restaurant general manager. The corkscrew was placed in the femoral head. The neck cut was made in the subcapital region. We made a second neck cut more distal. The napkin ring of bone was removed. The femoral head was removed intact. Acetabular retractors were placed, held by the assistant restaurant general manager. The labrum was sharply debrided. The capsule was released. The 43 mm reamer was used to the true medial wall. We then enlarged in 2 mm increments using the image intensifier for our reamer placement. We impacted the cup which had excellent purchase. We placed the polyethylene. Attention was then turned to the proximal femur. The limb was placed in 140 degrees of external rotation, maximum extension and adduction. A significant amount of time was spent releasing the capsule to allow us to deliver the femur into the wound and complete the femoral side safely. Retractors were held by the assistant restaurant general manager throughout the femoral preparation. The estimator paperboard boxes and canal finder were used. Broaches were used to a stable size. The calcar reamer was used. Trial components were placed. The hip was reduced and was found to be stable with appropriate soft tissue tension. Length and offset had been nicely restored using the image intensifier and our fluoroscopic guide. Trial components were removed. The stem was impacted. We placed the femoral head. Again, the hip was reduced and was found to be stable with appropriate soft tissue tension. Length and offset had been nicely restored. The assistant restaurant general manager did a three minute dilute Betadine solution soak. The assistant restaurant general manager irrigated the wound with 3 liters of normal saline via pulse lavage. The assistant restaurant general manager repaired the anterior capsule with a #1 Vicryl and our previously placed Ethibond sutures. The assistant restaurant general manager closed the fascia over the tensor fascia brianne with a #1 PDO Stratafix, subcutaneous tissues with 2-0 Vicryl, skin with a running 3-0 Stratafix and glue. A dry dressing was applied by the assistant restaurant general manager. Sponge and needle counts were correct x 2. The patient tolerated the procedure well; there were no apparent complications. They were awakened and extubated in the operating room, sent to the Post-Anesthesia Care Unit in satisfactory condition. PLAN: 1. The patient will be mobilized with physical therapy, weight-bearing as tolerates 2. Xarelto x 5 days then aspirin x 30 days will be used for DVT prophylaxis 3. The patient will be discharged once medically appropriate
[2024-10-03] MEDS: LACTATED RINGERS 1000 ML 1,000 ML 75 ML IV ×2 (09:40→10:00)
--- NOTE | 2024-10-03 10:22 | P.ANES_ITS ---
Anesthesia Charges Start Date/Time Anesthesia Start Date: 10/03/24 Anesthesia Start Time: 07:54 Stop Date/Time Anesthesia Stop Date: 10/03/24 Anesthesia Stop Time: 10:22 Coding CPT Codes CPT Codes: ANESTH HIP ARTHROPLASTY - 96342 ([id number]) P1 - NORMAL HEALTHY PATIENT, QK - RUBBER PRODUCTION MACHINE OPERATOR 2-4 CNCRNT ANEJesse PROC, QX - LEGAL BILLING COORDINATOR SVDameon W/ MED DIRECTION
--- NOTE | 2024-10-03 10:22 | W.ANESCHARGE ---
Anesthesia Charges Start Date/Time Anesthesia Start Date: 10/03/24 Anesthesia Start Time: 07:54 Stop Date/Time Anesthesia Stop Date: 10/03/24 Anesthesia Stop Time: 10:22 Coding CPT Codes CPT Codes: ANESTH HIP ARTHROPLASTY - 75066 ([id number]) P1 - NORMAL HEALTHY PATIENT, QK - SQL SERVER DBA 2-4 CNCRNT ANEJesse PROC, QX - BARGE HAND SVDameon W/ MED DIRECTION
[2024-10-03] MEDS: fentaNYL 100 MCG/2 ML inj 50 MCG IVP ×2 (10:35→10:55)
--- NOTE | 2024-10-03 11:02 | SUR.PHASEI ---
Patient awake when came to PACU, comfortable with small amount of pain, verbalized more pain after movement for x-ray. Medication offered and given, second dose of medication given when pain was returning per patient. Oxygen administered after first medication given for lower O2 saturation, improved and not needed after ten minutes. Patient meets discharge criteria from PACU.
[2024-10-03] MEDS: OXYCODONE 5 MG TABLET PO ×2 (11:32→19:29)
--- NOTE | 2024-10-03 11:44 | SUR.PHASEII ---
Patient's heart rate dips to 35-39 when patient sleeping. Patient denies lightheadedness or dizziness. Heart rate increases above 45 when nurse enters room. Dr. Nuñez notified. Dr. Nuñez in to speak with patient. No new orders.
[2024-10-03] MEDS: ONDANSETRON 2 MG/ML inj 4 MG IVP (12:02)
--- NOTE | 2024-10-03 12:18 | SUR.PHASEII ---
Patient O2 sats dipping to mid 80's. Upon entering room, instructional writer encouraged patient to deep breath and cough. O2 NA 3L applied. Patient O2 sats continued to decrease to 44%. Patient continued to deep breath and cough. Mask 10L O2 applied. O2 sats rebounded to 100%. Patient states pain remaining at 4/10 and is tolerable. States nausea has improved.
[2024-10-03] MEDS: METOCLOPRAMIDE HCL 5 MG/ML INJ 10 MG IVP (13:19)
--- NOTE | 2024-10-03 13:43 | SUR.PHASEII ---
O2 sats dropping into 80's. Patient sitting in recliner sleeping. Patient responds to mortgage underwriter requests to cough and deep breath. Patient's oxygen continues decreasing to 80% RA. Patient placed on mask 100%. O2 sats increase to 100%. Dr. Echevarria notified and in to see patient. Patient agreeable to stay overnight. [facility] Associate Consulting Engineer notified.
--- NOTE | 2024-10-03 15:47 | PM.IMCN1 ---
Date of Consult Consult date: 10/03/24 Primary Care Provider: Lei Suero MD Consult Narrative Narrative: Arabella Johnson is a 59 year old female with past medical history of hypothyroidism, hyperlipidemia, osteoarthritis and chronically elevated bilirubin who presents as a day case surgery to replace her left hip. Patient was temporarily hypoxic after surgery and needed oxygen, and thus was admitted for observation overnight. When I met the patient s/p Left total hip arthroplasty, she was doing well, not hypoxic or short of breath, her O2 sat was 96% on room air. Patient was bradycardic to the 40s and 50s beats per minute. I checked her EKG preop on September 23, 2024 which he showed sinus bradycardia at 56 beats per minute, it also showed slow R-wave progression, her PCP ordered an echo that was done few days ago but the report is still pending. Patient denies chest pain or discomfort, shortness of breath, she states that she is able to climb the stairs without being short of breath. Denies cardiac or pulmonary problems. Review of Systems Status of ROS: Reports: 6 or more systems reviewed and unremarkable except as noted in History and below [facility] Medical History (Updated 10/03/24 @ 18:33 by Billie Stark MD) Hyperlipidemia ?E78.5 - Hyperlipidemia, unspecified (ICD-10) Hypothyroidism ?E03.9 - Hypothyroidism, unspecified (ICD-10) Osteoarthritis of right hip ?M16.11 - Unilateral primary osteoarthritis, right hip (ICD-10) Degenerative disc disease at L5-S1 level ?M51.37 - Other intervertebral disc degeneration, lumbosacral region (ICD-10) Radicular pain of left lower extremity ?M54.10 - Radiculopathy, site unspecified (ICD-10) Cervical post-laminectomy syndrome ?M96.1 - Postlaminectomy syndrome, not elsewhere classified (ICD-10) Trochanteric bursitis of both hips ?M70.61 - Trochanteric bursitis, right hip (ICD-10) ?M70.62 - Trochanteric bursitis, left hip (ICD-10) Radial collateral ligament sprain of left elbow ?S53.432A - Radial collateral ligament sprain of left elbow, initial encounter (ICD-10) Strain of left biceps tendon ?S46.212A - Strain of muscle, fascia and tendon of other parts of biceps, left arm, initial encounter (ICD-10) Left elbow pain ?M25.522 - Pain in left elbow (ICD-10) Seasonal allergies ?J30.2 - Other seasonal allergic rhinitis (ICD-10) Elevated bilirubin (~04/2024) ?R17 - Unspecified jaundice (ICD-10) Kidney stone ?N20.0 - Calculus of kidney (ICD-10) Surgical History (Updated 10/03/24 @ 18:38 by Billie Stark MD) S/P total left hip arthroplasty (10/03/24) ?Z96.642 - Presence of left artificial hip joint (ICD-10) S/P endometrial ablation ?Z98.890 - Other specified postprocedural states (ICD-10) Status post ?Z98.891 - History of uterine scar from previous surgery (ICD-10) S/P repair of ventral hernia ?Z98.890 - Other specified postprocedural states (ICD-10) ?Z87.19 - Personal history of other diseases of the digestive system (ICD-10) Hx of excision of lamina of cervical vertebra for decompression of spinal cord ?Z98.890 - Other specified postprocedural states (ICD-10) S/P tonsillectomy ?Z90.89 - Acquired absence of other organs (ICD-10) Social History Smoking Status: Never smoker Do you use any of these nicotine containing products: None Second hand tobacco smoke exposure: No How often do you have a drink containing alcohol: monthly or less AUDIT-C Alcohol total score: 1 Non-prescribed substance use: denies use Caffeine: Yes Are you using contraception or practicing any form of control: No Meds Home Medications and Allergies Home Medications ?Medication ?Instructions ?Recorded ?Confirmed ?Type joint supplement PO 12/11/23 09/23/24 History multivitamin 1 tab PO QAM 12/11/23 10/03/24 History Allergies Allergy/AdvReac Type Severity Reaction Status Date / Time naproxen Allergy Mild Hives Verified 09/23/24 15:14 Exam Narrative: Exam Narrative: Physical exam GENERAL: Comfortable, no acute distress. O2 sat 96% on room air HEAD AND NECK: Atraumatic, normocephalic CARDIOVASCULAR: Bradycardic, regular. Normal S1, S2. No murmurs. RESPIRATORY: Clear to auscultation B/L. Good air entry B/L. No wheezes or rhonchi. GASTROINTESTINAL: Not distended, not tender to palpation. NEUROLOGY: Alert, awake, oriented X 3. PSYCH: Normal mood, normal affect. Const: Vital Signs, click to edit/add: Vital Signs - 24 hr 10/03/24 07:36 10/03/24 07:39 10/03/24 07:45 Temperature 98.9 F Pulse Rate 77 71 70 Respiratory Rate 16 16 14 Blood Pressure 139/96 H 158/108 H 149/91 H Pulse Oximetry 99 99 100 Oxygen Delivery Me thod Room Air Nasal Cannula Nasal Cannula Oxygen Flow Rate 3 3 10/03/24 10:18 10/03/24 10:20 10/03/24 10:25 Temperature 97.2 F L Pulse Rate 62 54 L 50 L Respiratory Rate 14 14 14 Blood Pressure 107/73 115/66 120/71 Pulse Oximetry 97 97 96 Oxygen Delivery Me thod Room Air Room Air Room Air Oxygen Flow Rate 10/03/24 10:30 10/03/24 10:35 10/03/24 10:40 Temperature Pulse Rate 49 L 50 L 48 L Respiratory Rate 15 14 12 Blood Pressure 119/71 104/58 L Pulse Oximetry 93 96 85 L Oxygen Delivery Me thod Room Air Room Air Nasal Cannula Oxygen Flow Rate 3 10/03/24 10:45 10/03/24 10:50 10/03/24 10:55 Temperature Pulse Rate 40 L 46 L 42 L Respiratory Rate 14 12 12 Blood Pressure 122/62 109/58 L 109/58 L Pulse Oximetry 96 100 98 Oxygen Delivery Me thod Nasal Cannula Room Air Oxygen Flow Rate 3 10/03/24 11:00 10/03/24 11:09 10/03/24 11:30 Temperature 97.3 F L 96.3 F L Pulse Rate 50 L 52 L 47 L Respiratory Rate 12 16 16 Blood Pressure 115/66 116/65 128/68 Pulse Oximetry 100 100 100 Oxygen Delivery Me thod Room Air Room Air Room Air Oxygen Flow Rate 10/03/24 11:45 10/03/24 12:00 10/03/24 12:30 Temperature Pulse Rate 38 L 40 L 40 L Respiratory Rate 16 16 14 Blood Pressure 116/69 131/60 137/78 Pulse Oximetry 94 100 100 Oxygen Delivery Me thod Room Air Room Air OxyMask Oxygen Flow Rate 10 10/03/24 13:00 10/03/24 13:19 10/03/24 13:45 Temperature Pulse Rate 67 67 42 L Respiratory Rate 16 16 16 Blood Pressure 133/76 123/63 118/63 Pulse Oximetry 100 99 100 Oxygen Delivery Me thod Room Air Room Air OxyMask Oxygen Flow Rate 10 ECG Attestation: I personally reviewed and interpreted this ECG as follows: Prior ECG tracings: available for review Interpretation: EKG preop on September 23, 2024 which he showed sinus bradycardia at 56 beats per minute, it also showed slow R-wave progression Imaging Left hip x-ray: Attestation: I have reviewed the pertinent imaging results. Radiologist's impression: Date of Service: 10/03/24 Procedure(s): XR hip LT post op Accession Number(s): [id number] cc: Mikey Echevarria M.D.; Lei Suero M.D.~ For Patients: As a result of the Cures Act, medical imaging exams and procedure reports are released immediately into your electronic medical record. You may view this report before your referring provider. If you have questions, please contact your health care provider. Indication: POST OP LEFT HIP Technique: AP hip centered pelvis and lateral view left hip Findings/Impression: Hardware from a left total hip arthroplasty is in satisfactory position. Bone alignment is normal. No sign of acute fracture. Postop changes are within normal limits. Dictated by Jack Love MD @ 10/03/2024 1:02:38 PM Assessment and Plan Assessment and plan (1) Acute hypoxic respiratory failure: Problem comment: -Patient was temporarily hypoxic after surgery and needed oxygen, and thus was admitted for observation overnight. When I met the patient postoperatively, she was doing well, not hypoxic or short of breath, her O2 sat was 96% on room air. -Patient denies chest pain or discomfort, shortness of breath, she states that she is able to climb the stairs without being short of breath. -Denies any chronic cardiac or pulmonary problems. -HCO3 is within normal limits indicating that the patient does not retain CO2, normal anion gap. -continuous pulse ox ordered Status: Acute (2) Sinus bradycardia: Problem comment: -preop EKG on September 23, 2024 showed sinus bradycardia at 56 beats per minute, it also showed slow R-wave progression, her PCP ordered an echo that was done few days ago but is not reported yet. -On levothyroxine for hypothyroidism. Ordered TSH as patient is bradycardic. -cardiac telemetry ordered Status: Acute (3) Status post hip replacement: Problem comment: - The patient will be mobilized with physical therapy, weight-bearing as tolerates - Xarelto x 5 days then aspirin x 30 days will be used for DVT prophylaxis. - The patient will be discharged once medically appropriate Status: Acute (4) Hyperlipidemia: Problem comment: - ASCVD risk 2.2% Status: Chronic (5) Hypothyroidism: Problem comment: On levothyroxine for hypothyroidism. Ordered TSH as patient is bradycardic. Status: Acute (6) Elevated bilirubin: Problem comment: Likely Gilbert's syndrome Status: Acute (7) Osteoarthritis of left hip: Problem comment: Status post hip replacement October 03, 2024 Status: Acute Total Time Spent Total Time Spent: Time spent: Today I spent 75 minutes seeing the patient, discussing the patient with ER staff, reviewing Expanse and EPIC notes/diagnostics, discussing the care plan with our care time that includes social work, PT/OT, pharmacy, RT, detention and documenting my impressions and plan in the medical record.
[2024-10-03 16:06] LABS: Hemoglobin* 11.6 gm/dL (12.0-16.0)
[2024-10-03 16:21] LABS: Albumin* 3.9 g/dL (3.3-5.0); Chloride* 101 mmol/L (96-114); Potassium* 4.2 mmol/L (3.6-5.1); Sodium* 133 mmol/L (135-149)
[2024-10-03 16:23] LABS: Blood Urea Nitrogen* 14 mg/dL (7-30); Creatinine* 0.6 mg/dL (0.5-1.5); Est. Creatinine Clearance* 105.51; Estimated Glomerular Filt Rate 103 ml/min
[2024-10-03 16:24] LABS: Alanine Aminotransferase* 15 U/L (4-35); Alkaline Phosphatase* 60 U/L (40-150); Anion Gap 6 mEq/L (7-15); Aspartate Amino Transferase* 27 U/L (12-35); Bilirubin Total* 1.7 mg/dL (0.1-1.5); Calcium* 8.6 mg/dL (8.4-10.6); Carbon Dioxide* 26 mmol/L (20-32); Glucose* 147 mg/dL (60-115); Total Protein* 6.2 g/dL (6.0-8.3)
[2024-10-03 16:25] LABS: Magnesium* 1.7 mg/dL (1.5-2.6)
[2024-10-03 18:24] LABS: Thyroid Stimulating Hormone* 0.372 uIU/mL (0.270-4.20)
--- NOTE | 2024-10-03 18:43 | PC.NURSE ---
End of shift: Pt arrived to the unit @ 1415 via wheelchair. AxOx4, pleasant, and cooperative with cares. Continent of the bladder. SBA GB W. Tolerating reg diet/fluids well. Active ice pack to the op site. Dressing remains CDI, CMS intact. VSS on RA with bradycardia occurrences during rest. MD Stark made aware, TELE put in place. Pt reports tolerable pain to the L hip that is not requiring PRN medication at the time being. Pt is up in chair with call light in reach.
[2024-10-03] MEDS: BENZOCAINE/MENTHOL 1 EACH LOZENGE MUCOUS MEM (19:48)
[2024-10-03] MEDS: SENNOSIDES 1 TAB TABLET 2 TAB PO (21:19)
[2024-10-04] MEDS: OXYCODONE 5 MG TABLET PO ×2 (01:30→08:09)
[2024-10-04] MEDS: ACETAMINOPHEN 500 MG TABLET 1000 MG PO ×2 (01:30→08:10)
[2024-10-04 03:00] VITALS: BP 123/68; PULSE 71; RESP 18; TEMP 36.8; O2SAT 98
[2024-10-04] MEDS: LEVOTHYROXINE 75 MCG TABLET 150 MCG PO (06:04)
--- NOTE | 2024-10-04 06:35 | PC.NURSE ---
End of shift report [id number]: Alert and oriented x 4. Pain to left hip well managed with current regimen. Dressing clean, dry and intact. Non pitting edam to left hip. Patient is SBA with walker and gait belt, tolerating ambulation in room with minimal pain. CMS intact to LLE, pedal pulses equal. honey liquefier continuous reading sinus bradycardia to NSR. Denies any lightheadedness or dizziness. Denies shortness of breath. Tolerating room air with O2 sats maintained >97% on room air throughout the night. Diet advanced to regular, denies any nausea or vomiting.
[2024-10-04 07:40] VITALS: PULSE 85
[2024-10-04] MEDS: MULTIVITAMIN/MINERALS 1 TABLET 1 TAB PO (08:10)
[2024-10-04] MEDS: SENNOSIDES 1 TAB TABLET 2 TAB PO (08:10)
[2024-10-04] MEDS: RIVAROXABAN 10 MG TABLET PO (08:10)
[2024-10-04 08:12] VITALS: BP 102/64; PULSE 71; RESP 12; RESP 18; O2SAT 100
--- NOTE | 2024-10-04 08:27 | PM.ORPN ---
Subjective Subjective Time Seen by Provider: 07:50 Date Seen: 10/04/24 Principal diagnosis: Status post left hip replacement Interval history: Arabella is comfortable in a recliner this morning. She had breakfast. Denies nausea vomiting. Her oxygen saturations have been good overnight. She plans to discharge to home today. Ortho Exam Narrative Exam Narrative: Alert and oriented x3. Patient is in no acute distress. Converses without labored breathing. Hearing is grossly intact. Ambulates with a walker. Examination of the left hip shows mild soft tissue edema about the thigh. Mild ecchymosis. Dressing is intact. No erythema or warmth or sign of infection. Calves are soft and nontender. CMS intact left lower extremity except for a patch of numbness over the thigh distal to the incision. She is able to only slightly straight leg raise with the left leg raising the leg about 2 in off the floor. Const Vital Signs, click to edit/add: Vital Signs - 24 hr 10/03/24 10:18 10/03/24 10:20 10/03/24 10:25 Temperature 97.2 F L Pulse Rate 62 54 L 50 L Pulse Rate [Right Pulse Oximeter] Respiratory Rate 14 14 14 Blood Pressure 107/73 115/66 120/71 Blood Pressure [Left Arm] Pulse Oximetry 97 97 96 Oxygen Delivery Method Room Air Room Air Room Air Oxygen Flow Rate 10/03/24 10:30 10/03/24 10:35 10/03/24 10:40 Temperature Pulse Rate 49 L 50 L 48 L Pulse Rate [Right Pulse Oximeter] Respiratory Rate 15 14 12 Blood Pressure 119/71 104/58 L Blood Pressure [Left Arm] Pulse Oximetry 93 96 85 L Oxygen Delivery Method Room Air Room Air Nasal Cannula Oxygen Flow Rate 3 10/03/24 10:45 10/03/24 10:50 10/03/24 10:55 Temperature Pulse Rate 40 L 46 L 42 L Pulse Rate [Right Pulse Oximeter] Respiratory Rate 14 12 12 Blood Pressure 122/62 109/58 L 109/58 L Blood Pressure [Left Arm] Pulse Oximetry 96 100 98 Oxygen Delivery Method Nasal Cannula Room Air Oxygen Flow Rate 3 10/03/24 11:00 10/03/24 11:09 10/03/24 11:30 Temperature 97.3 F L 96.3 F L Pulse Rate 50 L 52 L 47 L Pulse Rate [Right Pulse Oximeter] Respiratory Rate 12 16 16 Blood Pressure 115/66 116/65 128/68 Blood Pressure [Left Arm] Pulse Oximetry 100 100 100 Oxygen Delivery Method Room Air Room Air Room Air Oxygen Flow Rate 10/03/24 11:45 10/03/24 12:00 10/03/24 12:30 Temperature Pulse Rate 38 L 40 L 40 L Pulse Rate [Right Pulse Oximeter] Respiratory Rate 16 16 14 Blood Pressure 116/69 131/60 137/78 Blood Pressure [Left Arm] Pulse Oximetry 94 100 100 Oxygen Delivery Method Room Air Room Air OxyMask Oxygen Flow Rate 10 10/03/24 13:00 10/03/24 13:19 10/03/24 13:45 Temperature Pulse Rate 67 67 42 L Pulse Rate [Right Pulse Oximeter] Respiratory Rate 16 16 16 Blood Pressure 133/76 123/63 118/63 Blood Pressure [Left Arm] Pulse Oximetry 100 99 100 Oxygen Delivery Method Room Air Room Air OxyMask Oxygen Flow Rate 10 10/03/24 14:15 10/03/24 15:00 10/03/24 15:15 Temperature 97.6 F 97.5 F L Pulse Rate 59 L 75 Pulse Rate [Right Pulse Oximeter] Respiratory Rate 14 16 16 Blood Pressure 116/74 117/72 Blood Pressure [Left Arm] Pulse Oximetry 99 100 99 Oxygen Delivery Method Room Air Room Air Room Air Oxygen Flow Rate 10/03/24 16:15 10/03/24 17:15 10/03/24 19:00 Temperature 97.5 F L 97.8 F 98.3 F Pulse Rate 70 81 Pulse Rate [Right Pulse Oximeter] 58 L Respiratory Rate 16 16 18 Blood Pressure 126/68 112/63 Blood Pressure [Left Arm] 118/71 Pulse Oximetry 100 100 99 Oxygen Delivery Method Room Air Room Air Room Air Oxygen Flow Rate 10/03/24 23:00 10/03/24 23:00 10/03/24 23:00 Temperature 98.4 F Pulse Rate Pulse Rate [Right Pulse Oximeter] 55 L 55 L Respiratory Rate 16 16 16 Blood Pressure Blood Pressure [Left Arm] 109/69 Pulse Oximetry 97 97 Oxygen Delivery Method Room Air Room Air Oxygen Flow Rate 10/03/24 23:00 10/04/24 03:00 10/04/24 08:12 Temperature 98.2 F Pulse Rate 55 L Pulse Rate [Right Pulse Oximeter] 71 71 Respiratory Rate 18 18 Blood Pressure Blood Pressure [Left Arm] 123/68 Pulse Oximetry 98 Oxygen Delivery Method Room Air Oxygen Flow Rate 10/04/24 08:12 10/04/24 08:12 Temperature Pulse Rate Pulse Rate [Right Pulse Oximeter] 71 Respiratory Rate 12 12 Blood Pressure Blood Pressure [Left Arm] 102/64 Pulse Oximetry 100 100 Oxygen Delivery Method Room Air Room Air Oxygen Flow Rate Assessment and Plan Assessment and plan (1) S/P total left hip arthroplasty: Problem details: 10/03/24, Dr. Echevarria Status: Acute Assessment and Plan: Plan for discharge is today, and when they meets discharge criteria. DVT prophylaxis upon discharge includes Xarelto 10mg daily for a total of 5 days, then Aspirin 81mg twice daily for 30 days. Remove dressing 1 week. Observe wound and phone Orthopedics with any questions or concerns Use Ice on operative hip unrestricted. Return to clinic in 7-10 days for a wound check Return to clinic in 6 weeks with surgeon Minimize narcotic use. Wean off and discontinue soon as possible. Activities as tolerated. No strenuous activity. Attend outpt PT
[2024-10-04 11:00] VITALS: BP 116/64; PULSE 61; RESP 16; TEMP 37; O2SAT 97
--- NOTE | 2024-10-04 13:50 | PC.NURSE ---
Nursing Care Hours: [id number] Pt this shift calm and cooperative, alert and oriented. Pain controlled with PO meds and ice. Ambulating with SB assist with walker and gait belt. Tolerating regular diet. IV removed for discharge. Instructions went over with pt. Pt had no questions or concerns. Wheeled out to spouses vehicle in stable condition.
== END 2024-10-04 12:21 | disposition home or self-care (01) ==
LOC: OR 06:43 → MEDSURG 15:32
PROVIDERS: Student in an Organized Health Care Education/Training Program; PCP Family Medicine; Visit Provider Orthopaedic Surgery
PROC: (CPT 27130; principal; 2024-10-03 08:00)
DX: M16.12 Unilateral primary osteoarthritis, left hip (principal); G89.18 Other acute postprocedural pain; J95.821 Acute postprocedural respiratory failure; R00.1 Bradycardia, unspecified; E80.7 Disorder of bilirubin metabolism, unspecified; E78.5 Hyperlipidemia, unspecified; E03.9 Hypothyroidism, unspecified
CPT/HCPCS: 27130; 01214; 36415; 64450; 73501; 76000; 76942; 80053; 83735; 84443; 85018; 86850; 86900; 86901; 97110; 97116; 97161; 97165; 97535; A9153; A9270; C1776; J0330; J0690; J1100; J1171; J2250; J2405; J2704; J2710; J2765; J2795; J3010; J7120

== ENCOUNTER 2024-11-01 14:45 | Outpatient (RCR) | payer BC, SELFPAY ==
--- NOTE | 2024-10-11 15:36 | PT.OPDNX ---
PT [facility] Daily Note PT [facility] Outpatient Daily Note Start: 09/25/24 09:59 Freq: Status: Active Protocol: Document 10/11/24 14:35 HLA (Rec: 10/11/24 15:35 HLA No Response) E-signed By Mikaela Castro, PT, DPT PT OP Daily Progress Note Visit Information Note Type Daily Note Visit Number 2 Physician Authorized Visits Eval and treat Insurance Information Insurance Name [employer] Medical Diagnosis Left hip OA Left hip pre and post-op JANELL DOS: 10/03/24 SDS Treating Diagnosis Left hip pain, limited hip ROM , muscle weakness, antalgic gait Referring MD Echevarria Subjective Preferred Name [id number] Subjective Arabella reports her JANELL went well, some post op low sats and HR, stayed overnight, EKG was negative/not concerning, echo came back normal. Went home with spouse, using cane now, not needing walker. Doing her ex. Pain Comments took oxy prior to PT, pain L hip varies 4-8/10, increases when she is close to needing her oxy. Pain along incision, burning. Date of Last Physician Visit 07/15/24 Date of Surgery (If applicable) 10/03/24 Precautions Weight Bearing Status Weight Bear as Tolerated Home Exercise Home Exercise Comments Access Code: [email or web address] URL: [email or web address] Access Software/ Date: 10/11/2024 Prepared by: Mikaela Castro Exercises - Seated Forward Bending with PLB - 1 x daily - 7 x weekly - 1 sets - 10 reps - 5 hold - Seated March - 1 x daily - 7 x weekly - 1 sets - 10 reps - Seated Long Arc Quad - 1 x daily - 7 x weekly - 1 sets - 10 reps - 5 hold - Sit to Stand with Armchair - 1 x daily - 7 x weekly - 1 sets - 5 reps - Supine Bridge - 1 x daily - 7 x weekly - 1 sets - 10 reps - 3 hold - Supine Lower Trunk Rotation - 1 x daily - 7 x weekly - 1 sets - 10 reps - 3 hold - Objective Other/Pertinent Objective Abduction: 0-30, Flexion: 0- 95. IR: 15. ER: 30 Gross 3-/5 flex, abd 3-/5, ext 3+/5, knee ext 3+/5, knee flex 4-/5, ankle 5/5 Patient Instructed in Risks/Benefits Yes Therapeutic Exercise Therapeutic Exercise Minutes (minutes) 40 Therapeutic Exercise: To Restore Practiced anterior JANELL ex Functional Status program (quad sets, glut sets, ham sets, ankle pumps, heel slides, standing hip abduction , and supine lying flat) with pt needing assist for L HS initially, then active. Reviewed positioning in chair, use of ice/polar care, bed, transfer safety, gt safety with walker, stairs, car transfers and outpatient therapy goals and progression . added seated fwd bend, seated HF, LAQ x 10 supine pelvic tilt w/small bridge, LTR, gentle ER/IR with legs extended x 10. Sit<>stands x 10, pt needing 2 UE support, progression educated. Standing hip abd 2 UE support x 10 added ex today to hospital ex set: Access Code: [email or web address] URL: [email or web address] Access Software/ Date: 10/11/2024 Prepared by: Mikaela Castro Exercises - Seated Forward Bending with PLB - 1 x daily - 7 x weekly - 1 sets - 10 reps - 5 hold - Seated March - 1 x daily - 7 x weekly - 1 sets - 10 reps - Seated Long Arc Quad - 1 x daily - 7 x weekly - 1 sets - 10 reps - 5 hold - Sit to Stand with Armchair - 1 x daily - 7 x weekly - 1 sets - 5 reps - Supine Bridge - 1 x daily - 7 x weekly - 1 sets - 10 reps - 3 hold - Supine Lower Trunk Rotation - 1 x daily - 7 x weekly - 1 sets - 10 reps - 3 hold Therapeutic Activity Therapeutic Activities Comments sit<>supine uses UES to assist L sit<>stand ind car min assist Manual Therapy Techniques Manual Therapy Minutes (minutes) 5 Manual Therapy Techniques gentle stretch L hip in supine , incision/glue intact. Instructed pt in rolling out L IT band, quad for pain reduction at home. Gait & Stair Training Gait & Stair Training Comments 200 feet with cane 200 feet no device mildly antalgic L LE but good heel toe patterning, hip ext, knee flex at swing Amb progression at home educated, activity level discussed stairs 3 x 2 reps, 1 railing step to pattern. Self Care Management Training Self Care Management Training reviewed fall prevention, ice, showering, dressing Treatment Minutes Untimed Code Treatment Minutes 10 Timed Code Treatment Minutes 45 Total Treatment Time 55 Billing Units Therapeutic Exercise Units 3 Re-Evaluation Units 1 Assessment/Impression Assessment/Impression 59 year old female is 8 days s /p L ant JANELL with Dr. Echevarria. Saw ortho yesterday, surgical bandage removed, incision and glue intact. Pain varies 4-8/ 10, described as burning pain along incision. She is taking Tylenol q 4 hours and oxy 2x/ day. Pt is using ice frequently and amb routinely with a cane. She finds her JANELL ex were initially quite difficult, improving. L hip ROM 0-95 degrees flex, abd 0- 30, ER 0-30, IR 0-15. Strength 3-/5 L hip flex and abd, 3+/5 hip ext. She is using her arms to lift L LE on/off of bed and into car. Reviewed her JANELL ex, positioning, use of ice, activity level. Added seated ex for ROM, strength, supine hip rolls, ER/IR LEs extended, pelvic tilt with small range bridge. Pt did not mitra SLR, supine abd due to pain. She is able to amb 200 feet with and without cane, good stability, subha. Discussed gt progression, quality amb, using cane if antalgic. Stairs ind, step to pattern. 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 PT to cont with weekly appts for strengthening, ROM, balance, gt training, stairs. Plan of Care Physical Therapy Goals Within 6-8 weeks. 1. Pt will amb level surfaces 20 min without an assistive device and no evidence of limp . 2. Pt will ascend/descend 13 stairs with railing reciprocally, safely and independently for household and community mobility. 3. Pt will demonstrate normal strength of surgical hip to prevent substitution of movement, prevent falls with mobility. 4. Pt will be independent in home ex program to promote strength and mobility and to prevent falls. Daily Plan of Care Continue per POC Daily Plan of Care Comments weekly PT x 6-8 weeks Equipment Information Equipment Information has isabell andrade
== END 2024-11-01 15:50 | disposition home or self-care (01) ==
PROVIDERS: PCP Family Medicine; Visit Provider Orthopaedic Surgery
DX: M16.12 Unilateral primary osteoarthritis, left hip (principal); Z96.642 Presence of left artificial hip joint; M25.552 Pain in left hip; M25.551 Pain in right hip; M25.652 Stiffness of left hip, not elsewhere classified; M62.81 Muscle weakness (generalized); R26.9 Unspecified abnormalities of gait and mobility; Z74.09 Other reduced mobility; Z51.89 Encounter for other specified aftercare
CPT/HCPCS: 97110; 97140; 97161; 97164; 97535

== ENCOUNTER 2025-04-16 10:27 | Outpatient (CLI) | payer BC, SELFPAY | END 2025-04-16 10:28 | disposition home or self-care (01) | LOC: LKVREF 10:29 | PROVIDERS: PCP Family Medicine; Visit Provider Family Medicine | DX: E03.9 Hypothyroidism, unspecified (principal) | CPT/HCPCS: 84443 ==

== ENCOUNTER 2025-05-27 10:31 | Day surgery (SDC) | payer BC, SELFPAY ==
[2025-05-27] VITALS (23 sets, daily range): BP systolic 94–183; BP diastolic 60–97; PULSE 40–69; RESP 14–16; TEMP 36.1–37.1; O2SAT 96–100; BMI 26.0
[2025-05-27] MEDS: SODIUM CHLORIDE 0.9 % (FLUSH) 10 ML SYRINGE IVF (10:40)
[2025-05-27] MEDS: LACTATED RINGERS 1000 ML 1,000 ML 100 ML IV ×2 (10:50→13:20)
[2025-05-27] MEDS: OXYCODONE (CR) 10 MG TAB.ER.12H PO (11:12)
[2025-05-27] MEDS: ACETAMINOPHEN 500 MG TABLET 1000 MG PO ×3 (11:12→23:38)
[2025-05-27] MEDS: MIDAZOLAM HCL 1 MG/ML inj IVP (11:35)
--- NOTE | 2025-05-27 11:43 | P.NB_ITS ---
Nerve Block Nerve Block Time Seen by Provider: 11:35 Date Seen: 05/27/25 Type of block requested by surgeon for post-operative analgesia: DALILA/LFCN Side: right Time out performed: Yes Verification of patient name: Yes Verification of date of : Yes Site marking: site marked Name of person performing procedure: Joaquin Continuous monitoring Was continuous monitoring of O2 sat, B/P, campus director, recorded every 15 minutes?: Yes Procedure Checklist: sterile prep, needles and gloves Ultrasound guided. Images saved: Yes Medications given in 5ml increments after negative aspiration: Ropivicaine %: 0.5 mL: 30 Needle gauge: 20 Precedex (mcg): 25 Patient tolerated procedure well: Yes Additional comments: Needle noted below psoas tendon needle noted adjacent to LFCN Block Charges Block Charge (with Pro Fee): Other Periph Nerve Block Use of Ultrasound Machine for Block: Yes- US Guidance/pain block
--- NOTE | 2025-05-27 11:43 | P.ANES_ITS ---
Anesthesia Charges Start Date/Time Anesthesia Start Date: 05/27/25 Anesthesia Start Time: 12:24 Stop Date/Time Anesthesia Stop Date: 05/27/25 Anesthesia Stop Time: 15:30 Coding CPT Codes CPT Codes: ANESTH HIP ARTHROPLASTY - 87186 ([id number]) P1 - NORMAL HEALTHY PATIENT, QK - DELIVERY CREW WORKER 2-4 CNCRNT MARIE PROC, QX - TECHNICAL CLERK SVDameon W/ MED DIRECTION
--- NOTE | 2025-05-27 11:43 | W.ANESCHARGE ---
Anesthesia Charges Start Date/Time Anesthesia Start Date: 05/27/25 Anesthesia Start Time: 12:24 Stop Date/Time Anesthesia Stop Date: 05/27/25 Anesthesia Stop Time: 15:30 Coding CPT Codes CPT Codes: ANESTH HIP ARTHROPLASTY - 81478 ([id number]) P1 - NORMAL HEALTHY PATIENT, QK - DEDICATED TRUCK DRIVER 2-4 CNCRNT MARIE PROC, QX - CHRISTMAS TREE GROWER SVDameon W/ MED DIRECTION
[2025-05-27] MEDS: TRANEXAMIC ACID 100 MG/ML INJ 1000 MG IV (12:37)
--- NOTE | 2025-05-27 13:03 | CRLHL7_ITS ---
For Patients: As a result of the Cures Act, medical imaging exams and procedure reports are released immediately into your electronic medical record. You may view this report before your referring provider. If you have questions, please contact your health care provider. Indication: Hip replacement surgery Technique: AP hip fluoroscopic image. Fluoroscopy time 60.4 seconds. Findings/Impression: Hardware from a right total hip arthroplasty is in satisfactory position. Dictated by Jack Love MD @ 05/28/2025 8:52:18 AM (Electronically Signed)
--- NOTE | 2025-05-27 14:47 | CRLHL7_ITS ---
For Patients: As a result of the Cures Act, medical imaging exams and procedure reports are released immediately into your electronic medical record. You may view this report before your referring provider. If you have questions, please contact your health care provider. INDICATION: Post operative total hip arthroplasty, postoperative total hip arthroplasty TECHNIQUE: Pelvis radiograph, Hip radiograph 2 views right COMPARISON: 04/07/2025 FINDINGS: Bone: No acute fractures or aggressive bone lesions are identified. Joint: Bilateral hip arthroplasty is noted. The visualized sacroiliac joints are unremarkable in appearance. The pubic symphysis is normal in appearance. Soft tissue: Lateral right subcutaneous gas and joint gas are present from recent surgery. No radiopaque foreign bodies are seen. IMPRESSION: 1. There is an unremarkable postoperative appearance of the right hip arthroplasty. Dictated by: Pal Motta MD @ 05/28/2025 08:28:53 (Electronically Signed)
--- NOTE | 2025-05-27 15:05 | P.ORPRC_ITS ---
Procedure Note Date of procedure: 05/27/25 Procedure: PREOPERATIVE DIAGNOSIS: Right hip osteoarthritis POSTOPERATIVE DIAGNOSIS: Right hip osteoarthritis NAME OF OPERATION: Right total hip arthroplasty SURGEON: Mikey Echevarria MD MUTUEL CLERK: Nadia Dumont PA-C, LASHELL Can IMPLANTS: 1. [employer] [place] # 52 sector ingrowth cup 2. 36 x 52 +4 neutral polyethylene 3. Actis # 5 standard collared ingrowth stem 4. 36 + 1.5 ceramic femoral head ANESTHESIA: General ESTIMATED BLOOD LOSS: 775 cc COMPLICATIONS: None SPECIMENS: None DRAINS: None PREOPERATIVE ANTIBIOTICS: Ancef 2 g INDICATIONS: The patient is a 60-year-old with a longstanding history of michelle re, unrelenting right hip pain secondary to end-stage right hip osteoarthritis. Despite appropriate nonoperative management, including activity modification, use of an assist device, anti-inflammatories, [id number] pain medication, physical therapy and injections, they continue to have pain and disability. Operative intervention was offered. The risks, benefits and expected outcomes were discussed in detail. These included but were not limited to: Infection, bleeding, injury to blood vessel or nerve, venous thromboembolism. All questions were answered to their satisfaction. Use of an assistant superintendent for curriculum was necessary throughout the case for patient positioning and safety, soft tissue retraction and closure. A modifier 22 should be added to this case. The patient weighs 80 kg with l arge, tight muscles over the anterior aspect of the hip. This made the exposure difficult and added time to complete the case. PROCEDURE: The patient was placed supine on the [place] table. General Anesthesia was administered. The assistant superintendent for curriculum made sure the patient was properly positioned. The right hip was prepped and draped in the usual sterile fashion. The image intensifier was brought in for a perfect AP pelvis and a perfect double tear drop AP view of each hip which were used for intraoperative templating with our fluoroscopic guide. A bikini incision was made parallel to the hip flexion crease. The assistant superintendent for curriculum retracted the soft tissues to protect them. Subcutaneous dissection was taken with electrocautery to the superficial fascia. The fascia was divided in line with the incision. Blunt dissection was carried medially to the tensor fascia brianne and sartorius interval. Deep dissection was carried with electrocautery. The circumflex vessels were cauterized and divided. The capsule was exposed and then divided in a T-fashion, tagged with #1 FiberWire sutures. Retractors were placed in the joint, held by the assistant superintendent for curriculum. The corkscrew was placed in the femoral head. The neck cut was made in the subcapital region. We made a second neck cut more distal. The napkin ring of bone was removed. The femoral head was removed intact. Acetabular retractors were placed, held by the assistant superintendent for curriculum. The labrum was sharply debrided. The capsule was released. The 43 mm reamer was used to the true medial wall. We then enlarged in 2 mm increments using the image intensifier for our reamer placement. We impacted the cup which had excellent purchase. We placed the polyethylene. Attention was then turned to the proximal femur. The limb was placed in 140 degrees of external rotation, maximum extension and adduction. The capsule was released to allow us to deliver the femur into the wound and complete the femoral side. Retractors were held by the assistant superintendent for curriculum throughout the femoral preparation. The box covering machine operator and canal finder were used. Broaches were used to a stable size. The calcar reamer was used. Trial components were placed. The hip was reduced and was found to be stable with appropriate soft tissue tension. Length and offset had been nicely restored using the image intensifier and our fluoroscopic guide. Trial components were removed. The stem was impacted. We placed the femoral head. Again, the hip was reduced and was found to be stable with appropriate soft tissue tension. Length and offset had been nicely restored. The assistant superintendent for curriculum did a three minute dilute Betadine solution soak. The assistant superintendent for curriculum irrigated the wound with 3 liters of normal saline via pulse lavage. The assistant superintendent for curriculum repaired the anterior capsule with a #1 Vicryl and our previously placed Ethibond sutures. The assistant superintendent for curriculum closed the fascia over the tensor fascia brianne with a #1 PDO Stratafix, subcutaneous tissues with 2-0 Vicryl, skin with a running 3-0 Stratafix and glue. A dry dressing was applied by the assistant superintendent for curriculum. Sponge and needle counts were correct x 2. The patient tolerated the procedure well; there were no apparent complications. They were awakened and extubated in the operating room, sent to the Post-Anesthesia Care Unit in satisfactory condition. PLAN: 1. The patient will be mobilized with physical therapy, weight-bearing as tolerates 2. Xarelto x 5 days then aspirin x 30 days will be used for DVT prophylaxis 3. The patient will be discharged once medically appropriate
--- NOTE | 2025-05-27 15:34 | P.ANES_ITS ---
Anesthesia Charges Start Date/Time Anesthesia Start Date: 05/27/25 Anesthesia Start Time: 12:24 Stop Date/Time Anesthesia Stop Date: 05/27/25 Anesthesia Stop Time: 15:30 Coding CPT Codes CPT Codes: ANESTH HIP ARTHROPLASTY - 24936 ([id number]) P1 - NORMAL HEALTHY PATIENT, QK - FRAMING AND HANGING 2-4 CNCRNT MARIE PROC, QX - SLIP MIXER SVDameon W/ MED DIRECTION
--- NOTE | 2025-05-27 15:34 | W.ANESCHARGE ---
Anesthesia Charges Start Date/Time Anesthesia Start Date: 05/27/25 Anesthesia Start Time: 12:24 Stop Date/Time Anesthesia Stop Date: 05/27/25 Anesthesia Stop Time: 15:30 Coding CPT Codes CPT Codes: ANESTH HIP ARTHROPLASTY - 68912 ([id number]) P1 - NORMAL HEALTHY PATIENT, QK - [employer] AX CONSULTANT 2-4 CNCRNT MARIE PROC, QX - PEPPER PICKER SVDameon W/ MED DIRECTION
[2025-05-27] MEDS: LACTATED RINGERS 1000 ML 1,000 ML 35 ML IV (16:13)
[2025-05-27] MEDS: ONDANSETRON 2 MG/ML inj 4 MG IVP ×2 (18:02→21:54)
--- NOTE | 2025-05-27 18:17 | P.IMCN_ITS ---
Date of Consult Patient: [facility] Patient Consult date: 05/27/25 Requesting Physician: Orthopedics Primary Care Provider: Lei Suero MD Consult Narrative Reason for consult: Medical management of comorbidities Narrative: Arabella Johnson is a 60 year old female who presented to the hospital today for an elective R JANELL with Dr. Echevarria of Orthopedic Surgery. There were no surgical or anesthetic complications noted during procedure. Patient's H&P reviewed, PCP is Dr Suero. Past medical history significant for: Hypothyroidism, degenerative disc disease, osteoarthritis. Postoperative plan: Home with in [place] When I see her on the floor, she has some nausea. No chest pain. No other concerns for hospitalist team. Vital signs c/w sinus bradycardia; on chart review this is baseline for her. Had a normal TTE September 2024. Review of Systems Status of ROS: Reports: 10 or more systems reviewed and unremarkable except as noted in History and below [facility] Medical History (Updated 05/27/25 @ 18:34 by Kandis Fry MD) Hyperlipidemia ?E78.5 - Hyperlipidemia, unspecified (ICD-10) Hypothyroidism ?E03.9 - Hypothyroidism, unspecified (ICD-10) Osteoarthritis of right hip ?M16.11 - Unilateral primary osteoarthritis, right hip (ICD-10) Degenerative disc disease at L5-S1 level ?M51.37 - Other intervertebral disc degeneration, lumbosacral region (ICD-10) Radicular pain of left lower extremity ?M54.10 - Radiculopathy, site unspecified (ICD-10) Cervical post-laminectomy syndrome ?M96.1 - Postlaminectomy syndrome, not elsewhere classified (ICD-10) Trochanteric bursitis of both hips ?M70.61 - Trochanteric bursitis, right hip (ICD-10) ?M70.62 - Trochanteric bursitis, left hip (ICD-10) Radial collateral ligament sprain of left elbow ?S53.432A - Radial collateral ligament sprain of left elbow, initial encounter (ICD-10) Strain of left biceps tendon ?S46.212A - Strain of muscle, fascia and tendon of other parts of biceps, left arm, initial encounter (ICD-10) Left elbow pain ?M25.522 - Pain in left elbow (ICD-10) Seasonal allergies ?J30.2 - Other seasonal allergic rhinitis (ICD-10) Elevated bilirubin (~04/2024) ?R17 - Unspecified jaundice (ICD-10) Kidney stone ?N20.0 - Calculus of kidney (ICD-10) Surgical History (Updated 05/27/25 @ 18:34 by Kandis Fry MD) History of total right hip replacement (05/27/25) ?Z96.641 - Presence of right artificial hip joint (ICD-10) S/P total left hip arthroplasty (10/03/24) ?Z96.642 - Presence of left artificial hip joint (ICD-10) S/P endometrial ablation ?Z98.890 - Other specified postprocedural states (ICD-10) Status post ?Z98.891 - History of uterine scar from previous surgery (ICD-10) S/P repair of ventral hernia ?Z98.890 - Other specified postprocedural states (ICD-10) ?Z87.19 - Personal history of other diseases of the digestive system (ICD-10) Hx of excision of lamina of cervical vertebra for decompression of spinal cord ?Z98.890 - Other specified postprocedural states (ICD-10) S/P tonsillectomy ?Z90.89 - Acquired absence of other organs (ICD-10) Social History What is your current living situation?: I presently have a place to live Problems where you live: no known problems In the past 12 months, utilities in danger of being shut off: no In past 12 months, lack of transportation kept you from medical appts, meetings, work, or getting things needed for daily living: no In the past 12 mos, have been you worried that your food would run out before you had money to buy more?: never true In the past 12 mos, the food you bought just didn't last and you didn't have money to buy more?: never true Smoking Status: Never smoker Do you use any of these nicotine containing products: None Second hand tobacco smoke exposure: No How often do you have a drink containing alcohol: never AUDIT-C Alcohol total score: 0 Non-prescribed substance use: denies use Caffeine: Yes (2c/day) How often does anyone, including family, friends and others, physically hurt you : never How often does anyone, including family, friends and others, insult or talk down to you: never How often does anyone, including family, friends and others, threaten you with harm: never How often does anyone, including family, friends and others, scream or curse at you: never Are you using contraception or practicing any form of control: No service: No Meds Home Medications and Allergies Home Medications ?Medication ?Instructions ?Recorded ?Confirmed ?Type multivitamin 1 tab PO QAM 12/11/23 History acetaminophen 500 mg capsule 500 - 1,000 mg (1 - 2 x 5 00 mg) PO 10/03/24 05/27/25 Rx Q6H PRN pain #100 caps ibuprofen 200 mg tablet (Advil) 200 mg PO Q6H PRN 03/2405/27/25 History Held on 05/27/25. Instructions: Resume on 06/02/25. [facility] joint replacement See Rx Instructions PO FLAVIO Y 04/18/25 05/27/25 History aspirin 81 mg chewable tablet 81 mg PO BID for DVT pro phylaxis 05/27/25 Rx (Aspirin Childrens) 30 days #60 tabs levothyroxine 150 mcg tablet 150 mcg PO DAILY 05/27/25 05/27/25 History oxycodone 5 mg tablet 2.5 - 5 mg (0.5 - 1 x 5 mg) PO 05/27/25 Rx Q4-6H PRN Pain #42 tabs rivaroxaban 10 mg tablet (Xarelto) 10 mg PO DAILY DVT prophylaxis 4 05/27/25 Rx days #4 tabs sennosides 8.6 mg tablet (Senna 17.2 mg (2 x 8.6 mg) P O BID PRN 05/27/25 Rx Lax) constipation #100 tabs Allergies Allergy/AdvReac Type Severity Reaction Status Date / Time naproxen Allergy Mild Hives Verified 05/27/25 10:46 Exam Narrative: Exam Narrative: GEN: Alert and oriented, sitting comfortably in bedside chair HEENT: EOMIs bilaterally, no scleral icterus CV: Sinus bradycardia with rate in the 50s, no concerning murmurs R: LCTA bilaterally Ext: wwp, no concerning edema Skin: No concerning skin lesions or rashes on exposed skin Neuro: Nonfocal Psych: Appropriate Const: Vital Signs, click to edit/add: Vital Signs - 24 hr 05/27/25 11:10 05/27/25 11:35 05/27/25 11:45 Temperature 98.7 F Pulse Rate 55 L 62 62 Respiratory Rate 16 16 16 Blood Pressure 183/94 H 172/87 H 156/97 H Pulse Oximetry 100 100 100 Oxygen Delivery Me thod Room Air Nasal Cannula Nasal Cannula Oxygen Flow Rate 2 2 05/27/25 15:25 05/27/25 15:30 05/27/25 15:35 Temperature 97.4 F L Pulse Rate 58 L 69 63 Respiratory Rate 14 14 16 Blood Pressure 132/74 119/77 111/87 Pulse Oximetry 96 99 100 Oxygen Delivery Me thod Room Air Room Air Room Air Oxygen Flow Rate 05/27/25 15:40 05/27/25 15:45 05/27/25 15:50 Temperature Pulse Rate 51 L 43 L 51 L Respiratory Rate 16 16 16 Blood Pressure 115/67 116/76 111/76 Pulse Oximetry 100 100 100 Oxygen Delivery Me thod Room Air Room Air Room Air Oxygen Flow Rate 05/27/25 15:55 05/27/25 16:00 Temperature 97.0 F L 97.0 F L Pulse Rate 56 L 48 L Respiratory Rate 16 16 Blood Pressure 120/67 111/64 Pulse Oximetry 100 100 Oxygen Delivery Me thod Room Air Room Air Oxygen Flow Rate Assessment and Plan Assessment and plan (1) History of total right hip replacement: Problem comment: Right total hip arthroplasty. Dr. Echevarria, 05/27/25 Status: Acute (2) Hypothyroidism: Status: Acute Plan - pain management and prophylaxis per orthopedic surgery team - continue home medications for comorbidities - anticipate routine postoperative course
--- NOTE | 2025-05-27 18:54 | PC.NURSE ---
The patient arrived to the floor this afternoon after getting R hip replaced, the patient arrived to the floor at 6/10 pain, and was noted to be shaky. The patient stated this happens after anesthesia. After PRN medication was given the patients pain was noted to be @ 3/10. R hip dressing is CDI, ice pack to site. Voided after surgery, was up to the commode due to decreased mobility so soon after surgery. The patient also reported Nausea prior to trying to eat supper. PRN medication was given. Call light within reach. Katty ATWOOD BSN
[2025-05-27] MEDS: CEFAZOLIN 2 GM in 0.9 % SODIUM CHLORIDE Mini-bag 100 ML IVPB (19:03)
[2025-05-27] MEDS: SENNOSIDES 1 TAB TABLET 2 TAB PO (21:07)
[2025-05-28] MEDS: CEFAZOLIN 2 GM in 0.9 % SODIUM CHLORIDE Mini-bag 100 ML IVPB (02:29)
[2025-05-28 02:53] VITALS: BP 130/69; PULSE 53; RESP 16; TEMP 37.2; O2SAT 99
--- NOTE | 2025-05-28 05:40 | PC.NURSE ---
End of shift report [id number]: Pt has asymptomatic bradycardia which pt states is baseline.?Denies dizziness. AxOx4. Afebrile. Right hip dressing is C/D/I. Denies nausea. Pt rates pain from a 4/10, prn pain meds offered and given with relief. Intermittent ice applied. Pt ambulates 1A, GB, W to BR. Call light within reach.?
[2025-05-28 06:17] LABS: Hematocrit* 31.2 % (33.0-51.0); Hemoglobin* 10.4 gm/dL (12.0-16.0); Immature Granulocytes Abs Auto 0.07 K/uL (0.00-0.30); Immature Granulocytes Pct Auto 0.7 %; Mean Corpuscular HGB Conc 33 gm/dL (32-36); Mean Corpuscular Hemoglobin 28 pg (26-34); Mean Corpuscular Volume 84 fL (80-100); RDW Coefficient of Variation % 12.5 % (11.5-15.5); Red Blood Count* 3.73 m/uL (4.00-5.20); White Blood Count* 10.57 K/uL (4.50-11.00)
[2025-05-28 06:19] LABS: Lymphocytes Absolute Auto 1.30 K/uL (0.90-2.90); Slide Review Reflex No
[2025-05-28] MEDS: ACETAMINOPHEN 500 MG TABLET 1000 MG PO (06:23)
[2025-05-28] MEDS: LEVOTHYROXINE 75 MCG TABLET 150 MCG PO (06:24)
[2025-05-28 06:35] LABS: Chloride* 102 mmol/L (96-114); Sodium* 134 mmol/L (135-149)
[2025-05-28 06:36] LABS: Potassium* 4.3 mmol/L (3.6-5.1)
[2025-05-28 06:38] LABS: Blood Urea Nitrogen* 13 mg/dL (7-30); Creatinine* 0.8 mg/dL (0.5-1.5); Est. Creatinine Clearance* 78.15; Estimated Glomerular Filt Rate 84 ml/min
[2025-05-28 06:39] LABS: Anion Gap 6 mEq/L (7-15); Calcium* 8.5 mg/dL (8.4-10.6); Carbon Dioxide* 26 mmol/L (20-32); Glucose* 112 mg/dL (60-115)
[2025-05-28 08:00] VITALS: PULSE 53
[2025-05-28 08:22] VITALS: BP 100/62; PULSE 52; RESP 16; TEMP 37.2; O2SAT 95
[2025-05-28] MEDS: SENNOSIDES 1 TAB TABLET 2 TAB PO (08:37)
[2025-05-28] MEDS: RIVAROXABAN 10 MG TABLET PO (08:37)
--- NOTE | 2025-05-28 08:50 | PM.ORPN ---
Subjective Subjective Time Seen by Provider: 07:40 Date Seen: 05/28/25 Principal diagnosis: Status post right hip replacement Interval history: Arabella is comfortable. She is having breakfast, no nausea or vomiting. She will be discharging to home today. Ortho Exam Narrative Exam Narrative: Alert and oriented x3. Patient is in no acute distress. Converses without labored breathing. Hearing is grossly intact. Ambulates with a walker. Examination of the right hip shows the dressing is intact. Mild ecchymosis. Mild soft tissue edema. Bilateral calves are soft and nontender. CMS intact right lower extremity. Const Vital Signs, click to edit/add: Vital Signs - 24 hr 05/27/25 11:10 05/27/25 11:35 05/27/25 11:45 Temperature 98.7 F Pulse Rate 55 L 62 62 Pulse Rate [Pulse Oximeter] Respiratory Rate 16 16 16 Blood Pressure 183/94 H 172/87 H 156/97 H Blood Pressure [Left Arm] Pulse Oximetry 100 100 100 Oxygen Delivery Method Room Air Nasal Cannula Nasal Cannula Oxygen Flow Rate 2 2 05/27/25 15:25 05/27/25 15:30 05/27/25 15:35 Temperature 97.4 F L Pulse Rate 58 L 69 63 Pulse Rate [Pulse Oximeter] Respiratory Rate 14 14 16 Blood Pressure 132/74 119/77 111/87 Blood Pressure [Left Arm] Pulse Oximetry 96 99 100 Oxygen Delivery Method Room Air Room Air Room Air Oxygen Flow Rate 05/27/25 15:40 05/27/25 15:45 05/27/25 15:50 Temperature Pulse Rate 51 L 43 L 51 L Pulse Rate [Pulse Oximeter] Respiratory Rate 16 16 16 Blood Pressure 115/67 116/76 111/76 Blood Pressure [Left Arm] Pulse Oximetry 100 100 100 Oxygen Delivery Method Room Air Room Air Room Air Oxygen Flow Rate 05/27/25 15:55 05/27/25 16:00 05/27/25 16:10 Temperature 97.0 F L 97.0 F L 97.5 F L Pulse Rate 56 L 48 L Pulse Rate [Pulse Oximeter] 52 L Respiratory Rate 16 16 14 Blood Pressure 120/67 111/64 Blood Pressure [Left Arm] 112/85 Pulse Oximetry 100 100 100 Oxygen Delivery Method Room Air Room Air Room Air Oxygen Flow Rate 05/27/25 16:30 05/27/25 16:45 05/27/25 17:00 Temperature 97.5 F L 97.5 F L 97.5 F L Pulse Rate Pulse Rate [Pulse Oximeter] 50 L 45 L 41 L Respiratory Rate 14 14 14 Blood Pressure Blood Pressure [Left Arm] 104/86 127/87 151/75 H Pulse Oximetry 98 99 100 Oxygen Delivery Method Room Air Oxygen Flow Rate 05/27/25 17:15 05/27/25 17:45 05/27/25 18:15 Temperature 97.6 F 97.6 F 97.8 F Pulse Rate Pulse Rate [Pulse Oximeter] 40 L 65 45 L Respiratory Rate 14 16 16 Blood Pressure Blood Pressure [Left Arm] 145/75 H 94/75 104/61 Pulse Oximetry 98 100 100 Oxygen Delivery Method Oxygen Flow Rate 05/27/25 19:50 05/27/25 20:50 05/27/25 21:48 Temperature 97.7 F 97.8 F 98.5 F Pulse Rate Pulse Rate [Pulse Oximeter] 59 L 50 L 66 Respiratory Rate 16 16 16 Blood Pressure Blood Pressure [Left Arm] 112/60 122/82 124/83 Pulse Oximetry 100 99 100 Oxygen Delivery Method Room Air Room Air Room Air Oxygen Flow Rate 05/27/25 22:03 05/27/25 23:00 05/28/25 02:53 Temperature 98.3 F 98.9 F Pulse Rate Pulse Rate [Pulse Oximeter] 56 L 53 L Respiratory Rate 16 16 16 Blood Pressure Blood Pressure [Left Arm] 136/73 130/69 Pulse Oximetry 100 99 99 Oxygen Delivery Method Room Air Room Air Room Air Oxygen Flow Rate 05/28/25 08:22 05/28/25 08:22 Temperature 99.0 F Pulse Rate Pulse Rate [Pulse Oximeter] 52 L Respiratory Rate 16 16 Blood Pressure Blood Pressure [Left Arm] 100/62 Pulse Oximetry 95 95 Oxygen Delivery Method Room Air Room Air Oxygen Flow Rate Assessment and Plan Assessment and plan (1) History of total right hip replacement: Problem details: Right total hip arthroplasty. Dr. Echevarria, 05/27/25 Status: Acute Assessment and Plan: Plan for discharge is today, and when they meets discharge criteria. DVT prophylaxis upon discharge [includes Xarelto 10mg daily for a total of 5 days, then Aspirin 81mg twice daily for 30 days]. Remove dressing 1 week. Observe wound and phone Orthopedics with any questions or concerns Use Ice on operative hip unrestricted. Return to clinic in 1-2 weeks as scheduled for a wound check Return to clinic in 6 weeks with surgeon Minimize narcotic use. Wean off and discontinue soon as possible. Activities as tolerated. No strenuous activity. Attend outpt PT
--- NOTE | 2025-05-28 10:51 | PC.NURSE ---
The patient discharged home with her this AM. All discharge information was reviewed with the patient regarding S/S for f/u, medications, and other precautions. R hip dressing is CDI. All belongings were sent home with the patient. Katty ATWOOD BSN
== END 2025-05-28 10:40 | disposition home or self-care (01) ==
LOC: OR 10:32 → MEDSURG 10:33
PROVIDERS: Family Medicine; PCP Family Medicine; Visit Provider Orthopaedic Surgery
PROC: (CPT 27130; principal; 2025-05-27 12:30)
DX: M16.11 Unilateral primary osteoarthritis, right hip (principal); G89.18 Other acute postprocedural pain; E03.9 Hypothyroidism, unspecified
CPT/HCPCS: 27130; 01214; 36415; 64450; 73501; 76000; 76942; 80048; 85025; 86850; 86900; 86901; 97110; 97116; 97161; 97165; 97535; A9270; C1776; J0690; J1100; J1171; J2250; J2405; J2704; J2795; J3010; J3490; J7120

== ENCOUNTER 2025-07-17 09:45 | Outpatient (RCR) | payer BC, SELFPAY ==
--- NOTE | 2025-06-03 15:45 | PT.OPEX ---
PT [facility] Outpatient Eval PT [facility] Outpatient Eval Start: 06/03/25 12:06 Freq: Status: Active Protocol: Document 06/03/25 12:57 HLA (Rec: 06/03/25 15:41 HLA [id number]) E-signed By Mikaela Castro, PT, DPT Physical Therapy Outpatient Evaluation Insurance Information Recert Due Date 08/31/25 Insurance Name [employer] Medical Diagnosis R ant JANELL Treating Diagnosis pain, stiffness and weakness s/p R ant JANELL Referring MD Echevarria Subjective Preferred Name Arabella Subjective Feels like her leg is more swollen this time, pain has been ok, using oxycodone and tylenol. She rates it as 6 /10. She is continuing to use her walker for pain and stability. Pain Comments 5-6/10 across incision and down quad. Date of Last 05/28/25 Physician Visit Date of Surgery (If 05/27/25 applicable) Current Work Status Retired Precautions Weight Bearing Weight Bear as Tolerated Status Therapy Limitations/ Not Limited Systems Review Objective Range of Motion R hip 0-88 flex, 0-30 abd, ER 0-10, IR 0-20 knee full LLE Full Strength 5/5 L LE 3+/5 R hip, knee 5-/5 Swelling tenderness across R thigh, edema noted incision to upper thigh, surgical bandage in place Palpation tenderness across R thigh, edema noted incision to upper thigh, surgical bandage in place Balance & Gait Gt stable with walker, mild abd R LE. Amb 100 feet with sec L UE sba, pt to advance to cane at home as mitra this week. Stairs step to with railing balance fair+ Posture good Sensation/Reflexes intact to light touch Other/Pertinent Access Code: [email or web address] Objective URL: [email or web address] Date: 06/03/2025 Prepared by: Mikaela Castro Exercises - Supine Ankle Pumps - 3 x daily - 7 x weekly - 1 sets - 10 reps - Supine Quad Set - 3 x daily - 7 x weekly - 1 sets - 10 reps - 5 hold - Supine Gluteal Sets - 3 x daily - 7 x weekly - 1 sets - 10 reps - 5 hold - Supine Isometric Hamstring Set - 1 x daily - 7 x weekly - 1 sets - 10 reps - 5 hold - Supine Heel Slide - 3 x daily - 7 x weekly - 1 sets - 10 reps - 5 hold - Supine Hip Windshield Wipers - 3 x daily - 7 x weekly - 1 sets - 10 reps - Supine Lower Trunk Rotation - 3 x daily - 7 x weekly - 1 sets - 10 reps - Standing Hip Abduction with Counter Support - 3 x daily - 7 x weekly - 1 sets - 20 reps - Heel Raises with Counter Support - 3 x daily - 7 x weekly - 1 sets - 20 reps - Seated March - 3 x daily - 7 x weekly - 3 sets - 10 reps - Seated Long Arc Quad - 3 x daily - 7 x weekly - 1 sets - 20 reps - Seated forward bend - 3 x daily - 7 x weekly - 3 sets - 10 reps Functional Test LEFS or 11.3% Performed & Score Assessment Assessment/ Arabella is a 60 year old female 1 week s/p R ant JANELL. Impression PMHx includes hypothyroidism, DDD, OA and L JANELL 10/22. At baseline, Arabella is ind amb, drives. Lives with her spouse in a 2 story home, 2nd floor bed/bath. 3 step entry with railing. Stairs are not a problem post op. She arrives using a ww, amb with R foot toeing inward, stiff at R knee. Reports edema, discomfort R hip. Doing her ex and icing routinely. She did shower this week. Pt presents with pain and stiffness R LE, min assist of UEs for transfers on/off the bed. Amb with mild IR of R LE. Added windshield wipers hip rolls and LTR. Pt to work towards cane at home. Practiced and updated JANELL ex , progression of gt for home to cane. Pt is weak, impaired ROM after JANELL, recommend weekly PT to regain ind in ADLS, return to community distance mobility no device. Pt presents with weakness, impaired balance, impaired ambulation and will benefit from weekly PT for strengthening, ROM, balance training, gt training, safety, fall prevention and home ex program instruction with goal to return to community based mobility at low fall risk. Primary Functional impaired ROM, impaired strength, impaired balance, Limitations impaired amb, pain, impaired mobility Plan of Care Rehabilitation Good Potential Physical Therapy Within 4-6 weeks Goals Pt will amb level surfaces 20 min without an assistive device and no evidence of limp. Pt will ascend/descend 13 stairs with railing reciprocally, safely and independently for household and community mobility. Pt will demonstrate normal strength of surgical hip to prevent substitution of movement, prevent falls with mobility. Pt will be independent in home ex program to promote strength and mobility and to prevent falls. Coordination/ Referral Source,Patient Caregiver,Employer,Business Development SpecialistSteel Rule Die Maker With (QRC) Treatment Plan/ Dry Needling,Electrical Stimulation,Gait Training,Heat, Direct Interventions Ice/Cold/Vasopneumatic,Joint Mobilization,Manual Therapy,Neuromuscular Re-ed,Self-Care/Home Management, Therapeutic Activities,Therapeutic Exercises Frequency/Duration weekly x 4-6 weeks Patient Will Be Completion of LTG(s),Skills Plateau,Independent w/HEP, Discharged From Independently Progressing Therapy Evaluation Billing Untimed Code 17 Treatment Minutes PT Eval No Charge No Complexity Low Certification Information Initial 06/03/25 Certification Date Ending Certification 08/31/25 Date Provider Signature Yes Required Provider Signature POC & Medical Necessity Shows Agreement With Physician NPI Number Write NPI# Here Physician Comment/ : Change Physician Signature Please Sign/Date Here & Date Requested
== END 2025-07-17 15:39 | disposition home or self-care (01) ==
PROVIDERS: PCP Family Medicine; Visit Provider Orthopaedic Surgery
DX: Z47.1 Aftercare following joint replacement surgery (principal); Z96.641 Presence of right artificial hip joint; Z51.89 Encounter for other specified aftercare
CPT/HCPCS: 97110; 97140; 97161